=== PATIENT | male | born 1960 | race Caucasian/White ===

== ENCOUNTER 2019-06-18 10:33 | Emergency (ER) | payer OTHER ==
[~2019-06-18] VITALS: Ht 185.4 cm; Wt 65.3 kg
--- NOTE | 2019-06-18 11:07 | NUR ---
ED Nurse Note: Pt brought in to ED from home by caregiver/brother, pt c/o systemic rash/dryness and itchness for several days. Pt is developmentally delayed. VSS. PT is A&Ox1
[2019-06-18 11:08] VITALS: BP 125/54
[2019-06-18] MEDS ORDERED: DiphenhydrAMINE 50mg/ml Inj IVP ONE (11:30)
[2019-06-18] MEDS ORDERED: Solu-MEDROL 125mg Inj IVP ONE (11:30)
[2019-06-18] MEDS ORDERED: BENADRYL25 M3 PO (12:03)
[2019-06-18] MEDS ORDERED: PREDNISONE20 MG ORAL (12:03)
[2019-06-18 12:05] LABS: BASOPHILS % (AUTO) 1.3 % (0.0-2.0); EOSINOPHILS % (AUTO) 9.2 % (0.0-3.0); HEMATOCRIT 33.8 % (42.0-52.0); HEMOGLOBIN 11.1 G/DL (14.2-18.0); LYMPHOCYTES % (AUTO) 11.2 % (20.0-45.0); MEAN CORPUSCULAR VOLUME 78 FL (80-99); MONOCYTES % (AUTO) 4.9 % (1.0-10.0); NEUTROPHILS % (AUTO) 73.4 % (45.0-75.0); PLATELET COUNT 386 K/UL (150-450); RED BLOOD COUNT 4.31 M/UL (4.70-6.10); RED CELL DISTRIBUTION WIDTH 12.2 % (11.6-14.8)
[2019-06-18 12:12] LABS: ANION GAP 2 mmol/L (5-15); BLOOD UREA NITROGEN 6 mg/dL (7-18); CALCIUM 7.7 MG/DL (8.5-10.1); CARBON DIOXIDE 30 MMOL/L (21-32); CHLORIDE 99 MMOL/L (98-107); CREATININE 0.9 MG/DL (0.55-1.30); POTASSIUM 4.4 MMOL/L (3.5-5.1); SODIUM 131 MMOL/L (136-145)
[2019-06-18 12:17] LABS: ALANINE AMINOTRANSFERASE 45 U/L (12-78); ALBUMIN 2.7 G/DL (3.4-5.0); ALBUMIN/GLOBULIN RATIO 0.8 (1.0-2.7); ALKALINE PHOSPHATASE 79 U/L (46-116); ASPARTATE AMINO TRANSFERASE 65 U/L (15-37); BILIRUBIN,TOTAL 0.2 MG/DL (0.2-1.0)
--- NOTE | 2019-06-18 12:31 | NUR ---
EMRD at bedside discussing with pt and family members about D/C plan. EMRD given pt labs to family member.
[2019-06-18 12:40] VITALS: BP 125/54
--- NOTE | 2019-06-18 12:40 | NUR ---
ER DISCHARGE NOTE: Patient is cleared to be discharged per ERMD, pt is aox1, on room air, with stable vital signs. pt's family member was given dc and prescription instructions and was able to verbalize understanding, pt id band and iv site removed without complications. pt is able to ambulate with steady gait. family member took all belongings.
--- NOTE | 2019-06-19 20:14 | Emergency Room Report ---
History of Present Illness General Chief Complaint: Skin Rash/Abscess Source: Family Member, Medical Record Present Illness HPI Patient is a 58-year-old male presents after increased skin rash. This is been present for several weeks. Has had intermittent worsening. Patient had prior history of some mental debilitation. He is not actively on any medications. He has been taking Benadryl with some improvement in the itching however continued to have some itching. He had not been having any fever. No recent change in foods. No increased difficulty with breathing. Allergies: Coded Allergies: No Known Allergies (Unverified , 06/18/19) Patient History Past Medical History: see triage record Reviewed Nursing Documentation: PMH: Agreed; PSxH: Agreed Nursing Documentation-PMH History Of Psychiatric Problem: Yes - Intellectual disability Review of Systems All Other Systems: limited - Review of systems: Review systems is limited by patient's being a poor historian Physical Exam Vital Signs Date Time Temp Pulse Resp B/P (MAP) Pulse Ox O2 Delivery O2 Flow Rate FiO2 06/18/19 10:57 97.5 85 18 125/54 (77) 98 Room Air Sp02 EP Interpretation: reviewed, normal General Appearance: alert, other - [id number], Chronically Ill Head: atraumatic ENT: normal ENT inspection, hearing grossly normal, normal voice Neck: normal inspection, full range of motion, supple, no bony tend Respiratory: normal inspection, lungs clear, normal breath sounds, no respiratory distress, no retraction, no wheezing Cardiovascular #1: regular rate, rhythm, no edema Gastrointestinal: normal inspection, normal bowel sounds, non tender, soft, no guarding, no hernia Genitourinary: no CVA tenderness Musculoskeletal: normal inspection, back normal, normal range of motion Neurologic: normal inspection, alert, responsive, speech normal Psychiatric: normal inspection, judgement/insight normal, mood/affect normal Skin: other - generalized excoriated skin rash without erythema or ulcerations. Medical Decision Making Diagnostic Impression: Primary Impression: Skin rash Additional Impression: Hyponatremia ER Course Patient present for skin rash. Differential diagnosis include was not limited to eczema, contact dermatitis, allergic reaction among others. Laboratory testing was ordered to patient's generalized rash. Patient's laboratory testing showed normal white blood count with no definite evidence of infection. His eosinophil count noted to be somewhat high. Patient sodium was noted to be somewhat low. Patient's family member was advised to have the patient limit the amount of water intake. He was given prescription for steroids as well as antihistamines. Patient is to recheck with primary care physician in the next few days. He is to return if worse. Labs Test 06/18/19 11:30 White Blood Count 7.0 K/UL (4.8-10.8) Red Blood Count 4.31 M/UL (4.70-6.10) Hemoglobin 11.1 G/DL (14.2-18.0) Hematocrit 33.8 % (42.0-52.0) Mean Corpuscular Volume 78 FL (80-99) Mean Corpuscular Hemoglobin 25.8 PG (27.0-31.0) Mean Corpuscular Hemoglobin Concent 32.9 G/DL (32.0-36.0) Red Cell Distribution Width 12.2 % (11.6-14.8) Platelet Count 386 K/UL (150-450) Mean Platelet Volume 5.4 FL (6.5-10.1) Neutrophils (%) (Auto) 73.4 % (45.0-75.0) Lymphocytes (%) (Auto) 11.2 % (20.0-45.0) Monocytes (%) (Auto) 4.9 % (1.0-10.0) Eosinophils (%) (Auto) 9.2 % (0.0-3.0) Basophils (%) (Auto) 1.3 % (0.0-2.0) Sodium Level 131 MMOL/L (136-145) Potassium Level 4.4 MMOL/L (3.5-5.1) Chloride Level 99 MMOL/L (98-107) Carbon Dioxide Level 30 MMOL/L (21-32) Anion Gap 2 mmol/L (5-15) Blood Urea Nitrogen 6 mg/dL (7-18) Creatinine 0.9 MG/DL (0.55-1.30) Estimat Glomerular Filtration Rate > 60 mL/min (>60) Glucose Level 70 MG/DL (74-106) Calcium Level 7.7 MG/DL (8.5-10.1) Total Bilirubin 0.2 MG/DL (0.2-1.0) Aspartate Amino Transf (AST/SGOT) 65 U/L (15-37) Alanine Aminotransferase (ALT/SGPT) 45 U/L (12-78) Alkaline Phosphatase 79 U/L (46-116) Total Protein 6.1 G/DL (6.4-8.2) Albumin 2.7 G/DL (3.4-5.0) Globulin 3.4 g/dL Albumin/Globulin Ratio 0.8 (1.0-2.7) Last Vital Signs Date Time Temp Pulse Resp B/P (MAP) Pulse Ox O2 Delivery O2 Flow Rate FiO2 06/18/19 12:40 97.5 85 18 125/54 98 Room Air Status: improved Disposition: HOME, SELF-CARE Condition: Stable Scripts Diphenhydramine HCl (Benadryl) 25 Mg Capsule 25 MG PO EVERY 6 HOURS, #30 CAP Prov: Igor Hoang MD 06/18/19 Prednisone* (PREDNISONE*) 20 Mg Tablet 40 MG ORAL DAILY, #10 TAB Prov: Igor Hoang MD 06/18/19 Referrals: NON PHYSICIAN (PCP) Patient Instructions: Pruritus Additional Instructions: Follow up with your doctor for recheck and further workup of rash and lymph nodes. Return if any problems. Igor Hoang MD Jun 19, 2019 20:14
== END 2019-06-18 13:30 | disposition home or self-care (01) ==
LOC: EMR 13:22
DX: R21 Rash and other nonspecific skin eruption (principal); E87.1 Hypo-osmolality and hyponatremia
CPT/HCPCS: 36415; 80053; 85025; 96374; 96375; 99284; J1200; J2930

== ENCOUNTER 2019-08-13 15:46 | Emergency (ER) | payer OTHER ==
[~2019-08-13] VITALS: Ht 182.9 cm; Wt 63.5 kg
[~2019-08-13 15:46] MED LIST: BENADRYL25 M3 PO; PREDNISONE20 MG ORAL
[2019-08-13] MEDS ORDERED: BENADRYL25 M3 PO (17:06)
[2019-08-13] MEDS ORDERED: PREDNISONE20 MG ORAL (17:06)
--- NOTE | 2019-08-13 17:06 | Emergency Room Report ---
History of Present Illness General Chief Complaint: Skin Rash/Abscess Source: Family Member Present Illness HPI 59-year-old male with history of chronic pain, here complaining of worsening eczema, pruritus, however denies anaphylaxis, chest pain, shortness of breath, palpitation. Has been taking omtw-ooc-smhvvsb Benadryl. Patient reports that he had a similar condition few months ago and was given prednisone prednisone helped him. Has not yet been seen by primary care provider in this regard. Allergies: Coded Allergies: No Known Allergies (Unverified , 06/18/19) Patient History Past Medical History: see triage record Past Surgical History: unable to obtain Pertinent Family History: none Immunizations: UTD Reviewed Nursing Documentation: PMH: Agreed; PSxH: Agreed Nursing Documentation-PMH Past Medical History: No Stated History Review of Systems All Other Systems: negative except mentioned in HPI Physical Exam Vital Signs Date Time Temp Pulse Resp B/P (MAP) Pulse Ox O2 Delivery O2 Flow Rate FiO2 08/13/19 16:37 97.0 71 19 93/49 (64) 96 Room Air Sp02 EP Interpretation: reviewed, normal General Appearance: no apparent distress, alert, GCS 15, non-toxic Head: normocephalic, atraumatic Eyes: bilateral eye normal inspection, bilateral eye PERRL ENT: hearing grossly normal, normal pharynx, no angioedema, normal voice Neck: full range of motion, supple, no meningismus, supple/symm/no masses Respiratory: chest non-tender, lungs clear, normal breath sounds, no wheezing, speaking full sentences Cardiovascular #1: regular rate, rhythm, no edema, no murmur Gastrointestinal: non tender, soft Rectal: deferred Genitourinary: no CVA tenderness Musculoskeletal: back normal Neurologic: alert, motor strength/tone normal, oriented x3, sensory intact, responsive, speech normal Psychiatric: judgement/insight normal Skin: rash - Chronic eczema noted all over body Lymphatic: no adenopathy Medical Decision Making PA Attestation All diagnoses and treatment plans were reviewed and discussed with my supervising physician Dr. Betts Diagnostic Impression: Primary Impression: Chronic eczema Additional Impression: Contact dermatitis ER Course 59-year-old male with history of chronic pain, here complaining of worsening eczema, pruritus, however denies anaphylaxis, chest pain, shortness of breath, palpitation. Has been taking lobp-bhf-bnqmkuo Benadryl. Patient reports that he had a similar condition few months ago and was given prednisone prednisone helped him. Has not yet been seen by primary care provider in this regard. Ddx considered but are not limited to: Eczema, scabies, lice, Vital signs: are WNL, pt. is afebrile H&PE are most consistent with: Chronic eczema, contact dermatitis ORDERS: Prednisone, Benadryl ED INTERVENTIONS: None required at this time. DISCHARGE: At this time pt. is stable for d/c to home. Will provide printed patient care instructions, and any necessary prescriptions. Care plan and follow up instructions have been discussed with the patient prior to discharge. Patient take medication as directed, follow-up with a shipping and receiving operator and an cook boat. Use iizf-hsm-ybnfhzx Cetaphil cream. If worsening symptoms or anaphylaxis return to the emergency room. Last Vital Signs Date Time Temp Pulse Resp B/P (MAP) Pulse Ox O2 Delivery O2 Flow Rate FiO2 08/13/19 16:37 97.0 71 19 93/49 (64) 96 Room Air Disposition: HOME, SELF-CARE Condition: Stable Scripts Diphenhydramine HCl (Benadryl) 25 Mg Capsule 25 MG PO EVERY 6 HOURS, #30 CAP Prov: Jarod Perez 08/13/19 Prednisone* (PREDNISONE*) 20 Mg Tablet 40 MG ORAL DAILY, #10 TAB Prov: Jarod Perez 08/13/19 Patient Instructions: Contact Dermatitis, Fabc-tc-Rryl, Eczema Additional Instructions: Take medication as directed, follow-up with your primary care provider, need to be sent to an cook boat for proper testing and treatment. Also see a shipping and receiving operator. If worsening symptom return to emergency room. I suggest to use aknp-bjm-tmjjefb lotion called Cetaphil, use Dove products for bathing, avoid wearing nylon and wear cotton only clothing. Avoid eating spicy and greasy food. Use hypoallergenic detergents. Jarod Perez Aug 13, 2019 17:06
[2019-08-13 17:35] VITALS: BP 93/49
[2019-08-13 17:36] VITALS: BP 93/49
--- NOTE | 2019-08-13 17:37 | NUR ---
discharged home with instruction and rx follow up with pmd
== END 2019-08-13 17:34 | disposition home or self-care (01) ==
LOC: EMR 17:02
DX: L30.9 Dermatitis, unspecified (principal)
CPT/HCPCS: 99282

== ENCOUNTER 2019-09-10 01:40 | Inpatient (IN) | payer OTHER ==
[~2019-09-10] VITALS: Ht 175.3 cm; Wt 45.4 kg
[2019-09-10 01:45] VITALS: BP 122/84
--- NOTE | 2019-09-10 01:45 | NUR ---
ED Nurse Note: Pt brought into ED from home by DONELL [id number] for c/o seziure onset LUMBER CUTTER. Per DONELL, family witnessed seizure and it lasted about 1-2 min. Pt has hx of seizures but does not take medications at home. Pt is awake and alert, but is nonverbal to questions at this time. Pt placed in gown and connected to library monitor. IV line established. Seizure precautions in place, will continue to monitor.
--- NOTE | 2019-09-10 01:45 | NUR ---
ED Nurse Note: Diffuse redness, scaly rash noted to body with more redness to L and R hip and sacral region.
--- NOTE | 2019-09-10 01:50 | NUR ---
ED Nurse Note: ERMD notified of pt blood sugar at 59. Pt given (2apple juice as ordered by ERMD, pt tolerated well.
[2019-09-10 01:53] LABS: BASOPHILS % (AUTO) 1.6 % (0.0-2.0); EOSINOPHILS % (AUTO) 3.3 % (0.0-3.0); HEMATOCRIT 34.5 % (42.0-52.0); HEMOGLOBIN 11.7 G/DL (14.2-18.0); LYMPHOCYTES % (AUTO) 10.7 % (20.0-45.0); MEAN CORPUSCULAR VOLUME 77 FL (80-99); MONOCYTES % (AUTO) 4.8 % (1.0-10.0); NEUTROPHILS % (AUTO) 79.7 % (45.0-75.0); PLATELET COUNT 306 K/UL (150-450); RED BLOOD COUNT 4.45 M/UL (4.70-6.10); RED CELL DISTRIBUTION WIDTH 14.1 % (11.6-14.8); WHITE BLOOD COUNT 5.3 K/UL (4.8-10.8)
--- NOTE | 2019-09-10 01:55 | NUR ---
ED Nurse Note: Pt brother is at bedside at this time. Pt brother states pt is "on the slow side" but goes through phases where he is nonverbal and only responds with mumbling and other instances will speak in full sentences. Pt is only mumbling at this time.
--- NOTE | 2019-09-10 02:00 | NUR ---
ED Nurse Note: Pt unable to urinate using urinal at bedside at this time. No urine specimen collected, ERMD aware and ok with no collecting urine.
--- NOTE | 2019-09-10 02:00 | NUR ---
ED Nurse Note: Pt brother states pt does not have hx of seizures, despite report given from [facility].
[2019-09-10 02:05] LABS: ANION GAP 7 mmol/L (5-15); BLOOD UREA NITROGEN 14 mg/dL (7-18); CALCIUM 8.6 MG/DL (8.5-10.1); CARBON DIOXIDE 28 MMOL/L (21-32); CHLORIDE 94 MMOL/L (98-107); CREATININE 0.8 MG/DL (0.55-1.30); POTASSIUM 4.4 MMOL/L (3.5-5.1); SODIUM 129 MMOL/L (136-145)
[2019-09-10 02:11] LABS: ALANINE AMINOTRANSFERASE 49 U/L (12-78); ALBUMIN 2.8 G/DL (3.4-5.0); ALBUMIN/GLOBULIN RATIO 0.8 (1.0-2.7); ALKALINE PHOSPHATASE 87 U/L (46-116); ASPARTATE AMINO TRANSFERASE 68 U/L (15-37); BILIRUBIN,TOTAL 0.2 MG/DL (0.2-1.0)
--- NOTE | 2019-09-10 03:51 | Emergency Room Report ---
History of Present Illness General Chief Complaint: Seizure Source: Patient, Family Member - Brother, EMS Present Illness HPI 59-year-old male history of developmental delay lives at home, presents with new onset seizure, witnessed by family, patient had a tonic-clonic movement, lasting a few minutes no known aggravating relieving factors severity is moderate, constant unsure if patient actually fainted versus actually had a seizure, patient presents via EMS. Patient states he feels completely fine is up to baseline, patient denies any chest pain shortness of breath nausea vomiting, abdominal pain no headache, unknown if there was a postictal episode Allergies: Coded Allergies: No Known Allergies (Unverified , 06/18/19) Patient History Past Medical History: see triage record Reviewed Nursing Documentation: PMH: Agreed; PSxH: Agreed Nursing Documentation-PMH Hx Seizures: Yes Review of Systems All Other Systems: negative except mentioned in HPI Physical Exam Vital Signs Date Time Temp Pulse Resp B/P (MAP) Pulse Ox O2 Delivery O2 Flow Rate FiO2 09/10/19 01:30 97.5 86 16 122/84 (97) 98 Room Air Sp02 EP Interpretation: reviewed, normal General Appearance: well appearing, no apparent distress, alert Head: normocephalic, atraumatic Eyes: bilateral eye PERRL, bilateral eye EOMI ENT: uvula midline, moist mucus membranes Neck: supple, thyroid normal, supple/symm/no masses Respiratory: lungs clear, no respiratory distress, no retraction, no accessory muscle use Cardiovascular #1: normal peripheral pulses, regular rate, rhythm, no edema, no gallop, no murmur Gastrointestinal: non tender, soft, no guarding, no rebound Musculoskeletal: normal inspection Neurologic: alert, oriented x3 Psychiatric: mood/affect normal Skin: no rash, warm/dry Medical Decision Making Diagnostic Impression: Primary Impression: Epileptic seizure, generalized Additional Impression: Hypoglycemia ER Course 59-year-old male presents with new onset seizures, of note unknown origin differential diagnosis includes hyperglycemia, new onset seizures, brain mass We will admit patient for new onset seizures, CT scan negative for acute pathology Patient found to be recurrently hypoglycemic will start lactated Ringer's, will give dextrose will also give octreotide additionally patient will be admitted to telemetry Patient admitted to Dr. bojorquez Laboratory Tests Test 09/10/19 01:44 White Blood Count 5.3 K/UL (4.8-10.8) Red Blood Count 4.45 M/UL (4.70-6.10) L Hemoglobin 11.7 G/DL (14.2-18.0) L Hematocrit 34.5 % (42.0-52.0) L Mean Corpuscular Volume 77 FL (80-99) L Mean Corpuscular Hemoglobin 26.2 PG (27.0-31.0) L Mean Corpuscular Hemoglobin Concent 33.8 G/DL (32.0-36.0) Red Cell Distribution Width 14.1 % (11.6-14.8) Platelet Count 306 K/UL (150-450) Mean Platelet Volume 6.7 FL (6.5-10.1) Neutrophils (%) (Auto) 79.7 % (45.0-75.0) H Lymphocytes (%) (Auto) 10.7 % (20.0-45.0) L Monocytes (%) (Auto) 4.8 % (1.0-10.0) Eosinophils (%) (Auto) 3.3 % (0.0-3.0) H Basophils (%) (Auto) 1.6 % (0.0-2.0) Sodium Level 129 MMOL/L (136-145) L Potassium Level 4.4 MMOL/L (3.5-5.1) Chloride Level 94 MMOL/L (98-107) L Carbon Dioxide Level 28 MMOL/L (21-32) Anion Gap 7 mmol/L (5-15) Blood Urea Nitrogen 14 mg/dL (7-18) Creatinine 0.8 MG/DL (0.55-1.30) Estimate Glomerular Filtration Rate mL/min (>60) Glucose Level 63 MG/DL (74-106) L Calcium Level 8.6 MG/DL (8.5-10.1) Total Bilirubin 0.2 MG/DL (0.2-1.0) Aspartate Amino Transferase (AST) 68 U/L (15-37) H Alanine Aminotransferase (ALT) 49 U/L (12-78) Alkaline Phosphatase 87 U/L (46-116) Troponin I 0.000 ng/mL (0.000-0.056) Total Protein 6.3 G/DL (6.4-8.2) L Albumin 2.8 G/DL (3.4-5.0) L Globulin 3.5 g/dL Albumin/Globulin Ratio 0.8 (1.0-2.7) L Acetaminophen Level < 2 MCG/ML (10-30) L Valproic Acid Level < 3 MCG/ML (50-100) L Carbamazepine (Tegretol) Level < 0.5 ug/mL (4.0-12.0) L Phenobarbital Level < 1.0 ug/mL (15-40) L Serum Alcohol < 3 mg/dL EKG Diagnostic Results EKG Time: 01:59 EP Interpretation: NSR, rate 71, QTc 452, no acute ST elevations, normal axis Rhythm Strip Diag. Results Rhythm Strip Time: 03:53 EP Interpretation: yes Rate: 68 Rhythm: NSR, no PVC's, no ectopy CT/MRI/US Diagnostic Results CT/MRI/US Diagnostic Results : Impression Preliminary Findings Only See Final Report For Complete Findings CT HEAD: No ICH, mass effect or edema. No evidence of acute cortical stroke. Visualized sinuses and mastoid air cells are clear. Radiologist: Keith Blanchard MD Study ready at 06:01 and initial results transmitted at 06:14 Results also transmitted to Yelitza smith , Yelitza smith @ [phone] (Fax) Last Vital Signs Date Time Temp Pulse Resp B/P (MAP) Pulse Ox O2 Delivery O2 Flow Rate FiO2 09/10/19 01:45 86 16 Room Air 09/10/19 01:45 97.5 122/84 98 Disposition: ADMITTED INPATIENT Condition: Stable Referrals: NON PHYSICIAN (PCP) Tiburcio Aguilar MD Sep 10, 2019 03:51
[2019-09-10] MEDS ORDERED: SandoSTATIN 50mcg Inj IVP ONE (04:00)
[2019-09-10] MEDS ORDERED: Dextrose 5%/Lactated Ringer's 1,000 ML IV SCH (04:00)
--- NOTE | 2019-09-10 04:10 | NUR ---
ED Nurse Note: Sandostatin medication ordered by CARIE is not in ER pyxis. Charge nurse aware and phone call to radha made. Radha stated that medication is in the night locker and to follow up with nursing slab lifting supervisor.
--- NOTE | 2019-09-10 04:30 | NUR ---
ED Nurse Note: Went to night nurse supervisor files and checked night locker for medication Sandostatin, which isn't available. Nurse supervisor files instructed RN to wait until pharmacy is here in the morning. ERMD aware and is okay with waiting until pharmacy arrives.
[2019-09-10 06:00] VITALS: BP 125/72
--- NOTE | 2019-09-10 06:00 | NUR ---
ED Nurse Note: Pt resting in bed, no acute distress noted. VSS. Will continue to monitor. IV dextrose/LR infusing as ordered.
--- NOTE | 2019-09-10 06:35 | NUR ---
ED Nurse Note: Pt blood sugar 306, BARTOLOMED Lauren aware and Dextrose/LR drip still infusing at this time.
--- NOTE | 2019-09-10 07:10 | NUR ---
HAND-OFF: Report given to CHAS Osorio and endorsed plan of care.
[2019-09-10] MEDS ORDERED: levETIRAcetam 1,000mg/NS100ml 100 ML IVPB ONE (08:15)
[2019-09-10] MEDS ORDERED: SandoSTATIN 100mcg Inj IVP ONE (08:15)
[2019-09-10 08:26] VITALS: BP 123/76
--- NOTE | 2019-09-10 08:48 | Diagnostic Imaging Report ---
EXAM: CT Head Without Intravenous Contrast CLINICAL HISTORY: SZ TECHNIQUE: Axial computed tomography images of the head/brain without intravenous contrast. CTDI is 62.7 mGy and DLP is 1426.4 mGy-cm. One or more of the following dose reduction techniques were used: automated exposure control, adjustment of the mA and/or kV according to patient size, use of iterative reconstruction technique. COMPARISON: No relevant prior studies available. FINDINGS: Brain: Unremarkable. No hemorrhage. No significant white matter disease. No edema. Ventricles: Unremarkable. No ventriculomegaly. Bones/joints: Unremarkable. No acute fracture. Soft tissues: Unremarkable. Sinuses: Unremarkable as visualized. No acute sinusitis. Mastoid air cells: Unremarkable as visualized. No mastoid effusion. IMPRESSION: Normal head/brain CT.
[2019-09-10 10:17] LABS: BASOPHILS % (AUTO) 0.6 % (0.0-2.0); EOSINOPHILS % (AUTO) 4.5 % (0.0-3.0); HEMATOCRIT 34.4 % (42.0-52.0); HEMOGLOBIN 11.8 G/DL (14.2-18.0); LYMPHOCYTES % (AUTO) 10.6 % (20.0-45.0); MEAN CORPUSCULAR VOLUME 77 FL (80-99); MONOCYTES % (AUTO) 3.1 % (1.0-10.0); NEUTROPHILS % (AUTO) 81.2 % (45.0-75.0); PLATELET COUNT 294 K/UL (150-450); RED BLOOD COUNT 4.47 M/UL (4.70-6.10); RED CELL DISTRIBUTION WIDTH 14.5 % (11.6-14.8)
[2019-09-10 10:29] LABS: ANION GAP 5 mmol/L (5-15); BLOOD UREA NITROGEN 10 mg/dL (7-18); CALCIUM 7.9 MG/DL (8.5-10.1); CARBON DIOXIDE 28 MMOL/L (21-32); CHLORIDE 97 MMOL/L (98-107); CREATININE 0.7 MG/DL (0.55-1.30); POTASSIUM 4.6 MMOL/L (3.5-5.1); SODIUM 130 MMOL/L (136-145)
[2019-09-10 10:46] LABS: ALANINE AMINOTRANSFERASE 44 U/L (12-78); ALBUMIN 2.6 G/DL (3.4-5.0); ALBUMIN/GLOBULIN RATIO 0.8 (1.0-2.7); ALKALINE PHOSPHATASE 90 U/L (46-116); ASPARTATE AMINO TRANSFERASE 63 U/L (15-37); BILIRUBIN,TOTAL 0.2 MG/DL (0.2-1.0); FERRITIN 68 NG/ML (8-388)
[2019-09-10 11:03] LABS: % IRON SATURATION 28 % (15-50); IRON 65 ug/dL (50-175); TOTAL IRON BINDING CAPACITY 234 ug/dL (250-450)
--- NOTE | 2019-09-10 12:13 | Consultation ---
Consult Note Consult Note asked to eval for low Na 59-year-old male history of developmental delay lives at home, presents with new onset seizure, witnessed by family, patient had a tonic-clonic movement, lasting a few minutes no known aggravating relieving factors severity is moderate, constant unsure if patient actually fainted versus actually had a seizure, patient presents via EMS. Patient states he feels completely fine is up to baseline, patient denies any chest pain shortness of breath nausea vomiting, abdominal pain no headache, unknown if there was a postictal episode No Known Allergies (Unverified , 06/18/19) Hx Seizures: Yes non historian examined discussed with Tiago DOHERTYsmall engine trainer/Plan Low Na , Low Uric acid likekly mild SIADH Sz Developementa delay Mild Anemia Fluid restriction Mag IV Keppra Yohannes Smith MD Sep 10, 2019 12:13
[2019-09-10] MEDS ORDERED: Docusate 100mg cap ORAL SCH (13:00)
[2019-09-10] MEDS ORDERED: Cortrosyn 0.25mg Inj IVP ONE (13:00)
--- NOTE | 2019-09-10 13:17 | NUR ---
NURSE NOTES: Notified Dr. Marky Baird patients TSH=7.632.
--- NOTE | 2019-09-10 13:39 | Consultation ---
Consult Note Consult Note NEUROLOGY CONSULTATION: HISTORY: Mr. Rolando Zaidi is a 59-year-old, left-handed, black gentleman, who has a past history of developmental delay. He was brought into the [facility] emergency room for a possible seizure. The exact details of the events are unknown to us. Is also unclear if this is his first seizure or not. However in the emergency room notes it is noted that he had a generalized tonic-clonic seizure. At this point in time he feels that he is back to his normal self. He is unable to give any history regarding what happened that brought him to the hospital. He tells me that he is weak all over and has not been able to walk for quite some time. He also tells me that he is never been to school. PAST HISTORY: Developmental delay Eczema FAMILY HISTORY: Unavailable PERSONAL HISTORY: HOME: He lives with his family. WORK: He has never worked. HABITS: He denies use of alcohol tobacco or illicit drugs. PHYSICAL EXAMINATION: He is a well-developed, relatively well-nourished, black gentleman, lying in bed, with his legs hyperflexed, with an odd physiognomy. VITAL SIGNS: Pulse: 79/min Blood pressure: 121/75 mmHg Respirations: 16/min Temperature: 98.0 F HEAD: Normocephalic and atraumatic. NECK: No neck rigidity was observed. EENT examination: Benign NEUROLOGICAL EXAMINATION: MENTAL STATUS EXAMINATION: He was awake and alert. He was oriented to self only. He had no idea of where he was or what the date was. He was able to recall 3/3 words immediately, but could not remember them after 1 and 3 minutes. He was unable to tell me who the president president was and who prior presidents were. His mathematical skills were impaired even for single-digit calculations. His visuospatial function was also impaired. SPEECH: He had a moderate dysarthria. LANGUAGE: He had problems with comprehension, repetition, naming, and expression of language. CRANIAL NERVES: II through XII: Intact. MOTOR EXAMINATION: The tone was increased in all 4 extremities with spasticity. Examination of muscle mass revealed generalized muscle wasting. Examination of power was impossible to perform because he was unable to cooperate he however moves all 4 extremities on command. SENSORY EXAMINATION: He was able to respond appropriately to pinprick and light touch. He was unable to cooperate for the sensory modalities. COORDINATION: Mpgokf-[id number] and uypg-we-zoiq testing were attempted but he was severely apractic. REFLEXES: 1+ and bilaterally symmetrical at the biceps, triceps, brachioradialis, and knees. 0 at both ankles. The plantar responses were flexor. STANCE & GAIT: Unable to test as patient said that he cannot stand and walk. DIAGNOSTIC IMPRESSION: 1. Mr. Rolando Zaidi is a 59-year-old, left-handed, black gentleman, who has a past history of developmental delay. He was brought into the hospital for new onset generalized tonic-clonic seizure. 2. On neurological examination, at this time, he exhibits severe cognitive dysfunction, spasticity in all 4 extremities, generalized weakness, globally diminished deep tendon reflexes, and inability to stand and walk. 3. A CT scan of the brain without contrast performed on 09/10/2019 was normal. 4. Laboratory data obtained thus far have revealed a hemoglobin low at 11.7, a low sodium at 129, a low glucose at 63, and elevated TSH at 7.63 with a normal free T4 at 1.04. 5. It is unclear at this point in time as to whether the patient's seizure was related to hypoglycemia and hyponatremia versus a seizure due to other reasons. RECOMMENDATIONS: 1. Agree with management thus far. 2. The patient should be worked up thoroughly for other treatable causes of seizures with an ESR, RPR, hemoglobin A1c. 3. An EEG will be ordered to evaluate the patient for the type of seizure disorder. 4. An MRI scan of the brain without and with gadolinium should be performed to evaluate the patient for new onset seizures. 5. Continue Keppra 500 mg every 12 hours. 6. The patient will be observed closely and depending on how he fares further recommendations will be given. Thank you for entrusting me with the care of Mr. Zaidi. I shall follow him with you. Dashawn Tavera M.D., M.S.P.H. Neurologist & Clinical Neurophysiologist Dashawn Tavera MD Sep 10, 2019 13:39
[2019-09-10] MEDS ORDERED: Gadavist 7.5mMol/7.5ml vial IV PRN (13:45)
[2019-09-10] MEDS: Hydrocortisone 2.5% Oint 30gm TOPIC PRN (14:17)
--- NOTE | 2019-09-10 17:24 | NUR ---
NURSE NOTES: Both ACTH and Cortisol Timed tests were performed at 1509 (second set) by Kate in the laboratory.
[2019-09-10] MEDS: Docusate 100mg cap ORAL SCH (18:11)
--- NOTE | 2019-09-10 19:40 | NUR ---
NURSE NOTES: Received report from Jose Ramon Thakkar, pt. in bed awake, appears to be alert to name, no signs or symptoms of acute cardiac or respiratory distress noted, bed alarm on, side rails up x's3 and safety brakes engaged, bed in lowest position, side rails padded for seizure precautions- no seizure activity noted, pt.appears to be sating well on room air- no distress noted, pt.is NPO per endorsement, left hand 20G IV intact and patent, safety measures continued, will continue with plan of care.
--- NOTE | 2019-09-10 19:47 | NUR ---
NURSE NOTES: Patient sitting up in bed, awake and alert to name, socks placed on hands due to itching, treated with hydrocortisone cream, bed in lowest position, call light within reach, on room air, in no apparent distress, close to nurses station.
--- NOTE | 2019-09-10 19:48 | NUR ---
HAND-OFF: Report given to Delio Rodriguez RN. Patient sitting up in bed, awake and alert to name, socks placed on hands due to itching, treated with hydrocortisone cream, bed in lowest position, call light within reach, on room air, in no apparent distress, close to nurses station. IV patent in left hand.
--- NOTE | 2019-09-10 19:56 | NUR ---
NURSE NOTES: Left message on Dr. Xenia Sheets emergency number with concern for medication in case of seizure, possibly Ativan, and also mentioned having a venous duplex prior to application of SCD's. continuity reader nurse is Lulu, and notified Dr. Xenia Sheets to ask for Delio.
[2019-09-10 20:00] VITALS: BP 139/72
--- NOTE | 2019-09-10 20:02 | NUR ---
NURSE NOTES: Left message with Dr. Herbert Snell (sp?) covering for Dr. Dashawn Tavera requesting medication in case patient has a seizure, perhaps Ativan. Informed to ask for evening nurseLulu.
--- NOTE | 2019-09-10 20:43 | NUR ---
NURSE NOTES: DR. Wilson calling back, no Ativan PRN order needed for seizure-No seizure activity noted. Also venous duplex is okay to order before placing SCDs on pt.- orders carried out.
--- NOTE | 2019-09-10 22:22 | NUR ---
NURSE NOTES: Per loida Decker calling from lab regarding cortisol level range 3.7-19.4 cortisol 10am is 10.1 for 1330 cortisol level is 10.1 and 1500 cortisol level is 21.8- will notify MD DR. Wilson.
--- NOTE | 2019-09-10 22:30 | NUR ---
NURSE NOTES: per DR. Wilson to notify DR. Baird- will call doctor.
--- NOTE | 2019-09-10 22:35 | NUR ---
NURSE NOTES: Detailed message left For Dr. Baird regarding cortisol level - awaiting for call back from doctor.
[2019-09-11] VITALS: BP 123/79
--- NOTE | 2019-09-11 02:15 | History and Physical Report ---
DATE OF ADMISSION: 08/13/2019 HISTORY OF PRESENT ILLNESS: The patient was admitted for possible new onset of seizures. The patient has a mental delay, is a poor historian, status post fall, cannot get any reliable history from the patient. The patient had a syncopal episode, oriented to name only. The patient states no to everything and he is a very poor historian. He has some mental delays, he is admitted for new onset of seizures. The patient apparently also has been getting hypoglycemia. The patient diabetic and the patient's sodium was also low, was admitted for those reasons. Oriented to name only. PAST MEDICAL HISTORY: Mental delay. We are not sure if the patient has a history of seizure at this point. PAST SURGICAL HISTORY: Denies. ALLERGIES: Denies. MEDICATIONS: Denies. We need to get more records from the patient to see what the patient takes . SOCIAL HISTORY: Denies history of smoking, alcohol, or illegal drugs, however, is a poor historian. PHYSICAL EXAMINATION: VITAL SIGNS: Temperature is 98, pulse is 79, blood pressure is 121/75. HEENT: PERRLA. NECK: Supple. CHEST: Clear to auscultation. CARDIOVASCULAR: Regular rate and rhythm. No murmurs or extra sounds. GASTROINTESTINAL: Soft, nontender. No organomegaly. EXTREMITIES: No edema, moves all four extremities. Sensory intact to light touch. Reflexes on both sides. NEUROLOGIC: Oriented to name only. LABORATORY DATA: WBC of 5.3, hemoglobin 11.7, and 6.7. ASSESSMENT AND PLAN: 1. Altered mental status. 2. New-onset seizure. 3. Electrolyte imbalance. Actually, oriented to name only. I have consulted Dr. King, Dr. Baird, Dr. Tavera for seizure control as well as for hypoglycemia control and management and also for hyponatremia. The hyponatremia could also contribute to the seizures. Xenia Sheets M.D. DR: TAMICA JOB#: [id number] CC: ARIANA
--- NOTE | 2019-09-11 02:45 | NUR ---
NURSE NOTES: During rounds noted patients IV out at bedside- will reinsert new IV. Pt. remains stable.
[2019-09-11 04:00] VITALS: BP 125/70
--- NOTE | 2019-09-11 06:30 | NUR ---
NURSE NOTES: During rounds noted patients IV out at bedside that was wrapped- will reinsert new IV. Pt. remains stable.
--- NOTE | 2019-09-11 06:56 | General Progress Note ---
Assessment/Plan Problem List: (1) Hypoglycemia ICD Codes: E16.2 - Hypoglycemia, unspecified SNOMED: 210342534 (2) Epileptic seizure, generalized ICD Codes: G40.309 - Generalized idiopathic epilepsy and epileptic syndromes, not intractable, without status epilepticus SNOMED: 34637106 (3) Hyponatremia ICD Codes: E87.1 - Hypo-osmolality and hyponatremia SNOMED: 82556486 Assessment/Plan: adrenal insufficiency is ruled out - he passed Cortrosyn stimulation test on 09/10 TSH elevated and free T4 is normal - this represents "subclinical hypothyroidism " vs "sick euthyroid" I will repeat TSH before starting thyroxine Subjective ROS Limited/Unobtainable: Yes Allergies: Coded Allergies: No Known Allergies (Unverified , 06/18/19) Subjective events noted Objective Last 24 Hour Vital Signs Date Time Temp Pulse Resp B/P (MAP) Pulse Ox O2 Delivery O2 Flow Rate FiO2 09/11/19 04:00 97.7 58 20 125/70 (88) 100 09/11/19 03:42 60 09/11/19 00:00 64 09/11/19 00:00 97.5 58 18 123/79 (94) 99 09/10/19 21:00 Room Air 09/10/19 20:00 97.7 71 18 139/72 (94) 99 09/10/19 20:00 78 09/10/19 18:37 57 09/10/19 16:00 46 09/10/19 12:00 61 09/10/19 11:27 Room Air 09/10/19 08:36 66 09/10/19 08:35 98.0 79 12 121/75 97 Room Air 09/10/19 08:26 98.0 75 12 123/76 99 Room Air Intake and Output 09/10/19 09/11/19 19:00 07:00 Intake Total 400 ml Balance 400 ml IV Total 400 ml # Voids 2 4 Laboratory Tests 09/10/19 10:00: White Blood Count 5.0, Red Blood Count 4.47L, Hemoglobin 11.8L, Hematocrit 34.4L , Mean Corpuscular Volume 77L, Mean Corpuscular Hemoglobin 26.5L, Mean Corpuscular Hemoglobin Concent 34.4, Red Cell Distribution Width 14.5, Platelet Count 294, Mean Platelet Volume 6.5, Neutrophils (%) (Auto) 81.2H, Lymphocytes ( %) (Auto) 10.6L, Monocytes (%) (Auto) 3.1, Eosinophils (%) (Auto) 4.5H, Basophils (%) (Auto) 0.6, Erythrocyte Sedimentation Rate 22H, Sodium Level 130L , Potassium Level 4.6, Chloride Level 97L, Carbon Dioxide Level 28, Anion Gap 5 , Blood Urea Nitrogen 10, Creatinine 0.7, Estimat Glomerular Filtration Rate > 60, Glucose Level 128H, Hemoglobin A1c 5.6, Osmolality 273L, Uric Acid 2.9, Calcium Level 7.9L, Phosphorus Level 3.0, Magnesium Level 1.5L, Iron Level 65, Total Iron Binding Capacity 234L, Percent Iron Saturation 28, Unsaturated Iron Binding 169, Ferritin 68, Total Bilirubin 0.2, Aspartate Amino Transf (AST/SGOT ) 63H, Alanine Aminotransferase (ALT/SGPT) 44, Alkaline Phosphatase 90, C- Reactive Protein, Quantitative 1.0H, Pro-B-Type Natriuretic Peptide 121, Total Protein 5.9L, Albumin 2.6L, Globulin 3.3, Albumin/Globulin Ratio 0.8L, Vitamin B12 Level 1752H, Folate 13.2, Thyroid Stimulating Hormone (TSH) 7.632H, Free Thyroxine 1.04, Cortisol 10.1, Adrenocorticotropic Hormone [Pending], Rapid Plasma Reagin [Pending] 09/10/19 13:30: Cortisol 10.1 09/10/19 15:05: Cortisol 21.8, Adrenocorticotropic Hormone [Pending] Height (Feet): 5 Height (Inches): 9.00 Weight (Pounds): 150 General Appearance: no apparent distress Neck: normal inspection Cardiovascular: normal rate Respiratory/Chest: lungs clear Abdomen: normal bowel sounds Pelvis: normal external exam Objective Current Medications Medications (Trade) Dose Ordered Sig/Edwin Route PRN Reason Start Time Stop Time Status Last Admin Dose Admin Acetaminophen (Tylenol) 650 mg Q4H PRN ORAL Mild Pain/Temp > 100.5 09/10/19 10:00 10/10/19 09:59 Dextrose (Dextrose 50%) 25 ml Q30M PRN IV Hypoglycemia 09/10/19 10:00 10/10/19 09:59 Dextrose (Dextrose 50%) 50 ml Q30M PRN IV Hypoglycemia 09/10/19 10:00 10/10/19 09:59 Docusate Sodium (Colace) 100 mg TWICE A DAY ORAL 09/10/19 18:00 10/10/19 17:59 09/10/19 18:11 Gadobutrol (Gadavist) 7.5 mmol NOW PRN IV Radiology Procedure 09/10/19 13:45 09/14/19 13:39 Hydrocortisone (Hydrocortisone) 1 applic Q4H PRN TOPIC Itching 09/10/19 13:15 10/10/19 13:14 09/10/19 14:17 Levetiracetam (Keppra) 500 mg Q12HR ORAL 09/10/19 21:00 10/10/19 20:59 09/10/19 20:09 Pantoprazole (Protonix) 40 mg BID ORAL 09/10/19 18:00 10/10/19 10:14 09/10/19 18:11 Marky Baird MD Sep 11, 2019 06:56
--- NOTE | 2019-09-11 07:25 | NUR ---
HAND-OFF: Report given to Joselyn Rn, pt. remains stable and no distress noted.
[2019-09-11 07:30] LABS: HEMATOCRIT 35.3 % (42.0-52.0); HEMOGLOBIN 12.7 G/DL (14.2-18.0); MEAN CORPUSCULAR VOLUME 77 FL (80-99); PLATELET COUNT 290 K/UL (150-450); RED CELL DISTRIBUTION WIDTH 14.6 % (11.6-14.8); WHITE BLOOD COUNT 2.6 K/UL (4.8-10.8)
[2019-09-11 07:47] LABS: ALANINE AMINOTRANSFERASE 49 U/L (12-78); ALBUMIN/GLOBULIN RATIO 0.8 (1.0-2.7); ALKALINE PHOSPHATASE 104 U/L (46-116); ANION GAP 9 mmol/L (5-15); ASPARTATE AMINO TRANSFERASE 67 U/L (15-37); BILIRUBIN,TOTAL 0.2 MG/DL (0.2-1.0); BLOOD UREA NITROGEN 9 mg/dL (7-18); CALCIUM 8.2 MG/DL (8.5-10.1); CARBON DIOXIDE 26 MMOL/L (21-32); CHLORIDE 100 MMOL/L (98-107); CREATININE 0.8 MG/DL (0.55-1.30); PHOSPHORUS 3.8 MG/DL (2.5-4.9); POTASSIUM 4.7 MMOL/L (3.5-5.1); SODIUM 135 MMOL/L (136-145)
[2019-09-11 08:00] VITALS: BP 105/57
--- NOTE | 2019-09-11 08:49 | NUR ---
NURSE NOTES: Received patient from Jose Ramon Lawson. Patient is awake, confused. Lying comfortably in bed. No complain pf pain or discomfort at this time. Fall/seizure precautions in place. call delatorre within reach. will follow.
[2019-09-11] MEDS: Docusate 100mg cap ORAL SCH ×2 (09:18→17:35)
--- NOTE | 2019-09-11 10:12 | Cardiac Electrophysiology PN ---
Subjective Subjective [id number] Objective Last 24 Hour Vital Signs Date Time Temp Pulse Resp B/P (MAP) Pulse Ox O2 Delivery O2 Flow Rate FiO2 09/11/19 04:00 97.7 58 20 125/70 (88) 100 09/11/19 03:42 60 09/11/19 00:00 64 09/11/19 00:00 97.5 58 18 123/79 (94) 99 09/10/19 21:00 Room Air 09/10/19 20:00 97.7 71 18 139/72 (94) 99 09/10/19 20:00 78 09/10/19 18:37 57 09/10/19 16:00 46 09/10/19 12:00 61 09/10/19 11:27 Room Air Intake and Output 09/10/19 09/11/19 19:00 07:00 Intake Total 400 ml Balance 400 ml IV Total 400 ml # Voids 2 4 Laboratory Tests Test 09/10/19 13:30 09/10/19 15:05 09/11/19 06:45 Cortisol 10.1 UG/DL 21.8 UG/DL Adrenocorticotropic Hormone Pending White Blood Count 2.6 K/UL (4.8-10.8) L Red Blood Count 4.60 M/UL (4.70-6.10) L Hemoglobin 12.7 G/DL (14.2-18.0) L Hematocrit 35.3 % (42.0-52.0) L Mean Corpuscular Volume 77 FL (80-99) L Mean Corpuscular Hemoglobin 27.6 PG (27.0-31.0) Mean Corpuscular Hemoglobin Concent 36.0 G/DL (32.0-36.0) Red Cell Distribution Width 14.6 % (11.6-14.8) Platelet Count 290 K/UL (150-450) Mean Platelet Volume 6.3 FL (6.5-10.1) L Neutrophils (%) (Auto) % (45.0-75.0) Lymphocytes (%) (Auto) % (20.0-45.0) Monocytes (%) (Auto) % (1.0-10.0) Eosinophils (%) (Auto) % (0.0-3.0) Basophils (%) (Auto) % (0.0-2.0) Differential Total Cells Counted 100 Neutrophils % (Manual) 80 % (45-75) H Lymphocytes % (Manual) 15 % (20-45) L Monocytes % (Manual) 5 % (1-10) Eosinophils % (Manual) 0 % (0-3) Basophils % (Manual) 0 % (0-2) Band Neutrophils 0 % (0-8) Platelet Estimate Adequate Platelet Morphology Normal Microcytosis 1+ Sodium Level 135 MMOL/L (136-145) L Potassium Level 4.7 MMOL/L (3.5-5.1) Chloride Level 100 MMOL/L (98-107) Carbon Dioxide Level 26 MMOL/L (21-32) Anion Gap 9 mmol/L (5-15) Blood Urea Nitrogen 9 mg/dL (7-18) Creatinine 0.8 MG/DL (0.55-1.30) Estimat Glomerular Filtration Rate > 60 mL/min (>60) Glucose Level 84 MG/DL (74-106) Uric Acid 2.8 MG/DL (2.6-7.2) Calcium Level 8.2 MG/DL (8.5-10.1) L Phosphorus Level 3.8 MG/DL (2.5-4.9) Magnesium Level 2.5 MG/DL (1.8-2.4) H Total Bilirubin 0.2 MG/DL (0.2-1.0) Aspartate Amino Transf (AST/SGOT) 67 U/L (15-37) H Alanine Aminotransferase (ALT/SGPT) 49 U/L (12-78) Alkaline Phosphatase 104 U/L (46-116) Total Protein 6.8 G/DL (6.4-8.2) Albumin 3.0 G/DL (3.4-5.0) L Globulin 3.8 g/dL Albumin/Globulin Ratio 0.8 (1.0-2.7) L Thyroid Stimulating Hormone (TSH) 5.918 uiU/mL (0.358-3.740) Sreekanth Dong MD Sep 11, 2019 10:12
--- NOTE | 2019-09-11 10:37 | Nephrology Progress Note ---
Assessment/Plan Problem List: (1) Hyponatremia (2) Epileptic seizure, generalized (3) Electrolyte imbalance (4) Hypothyroid Assessment: Euthyroid Assessment Low Na , Low Uric acid likekly mild SIADH Sz Developmental delay Mild Anemia Plan Fluid restriction Mag IV Keppra St eval Subjective ROS Limited/Unobtainable: No Constitutional: Reports: malaise, weakness Objective Objective Last 24 Hour Vital Signs Date Time Temp Pulse Resp B/P (MAP) Pulse Ox O2 Delivery O2 Flow Rate FiO2 09/11/19 04:00 97.7 58 20 125/70 (88) 100 09/11/19 03:42 60 09/11/19 00:00 64 09/11/19 00:00 97.5 58 18 123/79 (94) 99 09/10/19 21:00 Room Air 09/10/19 20:00 97.7 71 18 139/72 (94) 99 09/10/19 20:00 78 09/10/19 18:37 57 09/10/19 16:00 46 09/10/19 12:00 61 09/10/19 11:27 Room Air Intake and Output 09/10/19 09/11/19 19:00 07:00 Intake Total 400 ml Balance 400 ml IV Total 400 ml # Voids 2 4 Laboratory Tests 09/10/19 13:30: Cortisol 10.1 09/10/19 15:05: Cortisol 21.8, Adrenocorticotropic Hormone [Pending] 09/11/19 06:45: White Blood Count 2.6L, Red Blood Count 4.60L, Hemoglobin 12.7L, Hematocrit 35.3L, Mean Corpuscular Volume 77L, Mean Corpuscular Hemoglobin 27.6, Mean Corpuscular Hemoglobin Concent 36.0, Red Cell Distribution Width 14.6, Platelet Count 290, Mean Platelet Volume 6.3L, Neutrophils (%) (Auto) , Lymphocytes (%) ( Auto) , Monocytes (%) (Auto) , Eosinophils (%) (Auto) , Basophils (%) (Auto) , Differential Total Cells Counted 100, Neutrophils % (Manual) 80H, Lymphocytes % (Manual) 15L, Monocytes % (Manual) 5, Eosinophils % (Manual) 0, Basophils % ( Manual) 0, Band Neutrophils 0, Platelet Estimate Adequate, Platelet Morphology Normal, Microcytosis 1+, Sodium Level 135L, Potassium Level 4.7, Chloride Level 100, Carbon Dioxide Level 26, Anion Gap 9, Blood Urea Nitrogen 9, Creatinine 0.8 , Estimat Glomerular Filtration Rate > 60, Glucose Level 84, Uric Acid 2.8, Calcium Level 8.2L, Phosphorus Level 3.8, Magnesium Level 2.5H, Total Bilirubin 0.2, Aspartate Amino Transf (AST/SGOT) 67H, Alanine Aminotransferase (ALT/SGPT) 49, Alkaline Phosphatase 104, Total Protein 6.8, Albumin 3.0L, Globulin 3.8, Albumin/Globulin Ratio 0.8L, Thyroid Stimulating Hormone (TSH) [Pending], Free Thyroxine [Pending] Height (Feet): 5 Height (Inches): 9.00 Weight (Pounds): 150 General Appearance: no apparent distress Abdomen: soft Objective no change Yohannes King MD Sep 11, 2019 10:37
--- NOTE | 2019-09-11 11:06 | NUR ---
ST NOTES: REFERRED FOR SWALLOW EVALUATION BY DR MILLARD (PRIMARY IS DR GANNON). DYSPHAGIA RISK FACTORS FOR THIS 59 Y.O.LEFT-HAND DOMINANT AA MALE: ACUTE ISSUES: JOB HAND HAD NEW ONSET TONIC-CLONIC SEIZURE A FEW MINS MODERATE SEVERITY (SEE NEURO CONSULT DR Trisha KELLY REPORT), (CT HEAD IN ER NEGATIVE), LATER BACK TO BASELINE (WHICH PER HIS BROTHER IS " A LITTLE ON THE SLOW SIDE" AND WILL GO FROM MUMBLING LIKE NOW TO FULL SENTENCES, HYPOGLYCEMIA, LUNGS CLEAR PER MD. MRI BRAIN AND EEG ORDERED BY NEUROLOGIST DR KELLY. 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 HE TOLD HIM THAT HE NEVER WENT TO SCHOOL. SEVERE COGNITIVE DYSFUNCTION, SPASTICITY ALL 4 EXTREMITIES, GEN WEAKNESS. RECALLED 3/3 WORDS IMMEDIATELY BUT ONLY 1/3 AFTER 1 AND 3 MINUTES. DID NOT KNOW PRESIDENT NOR MATH SINGLE-DIGIT CALCULATIONS, IMPAIRED VISUOSPATIAL FX, MODERATE DYSARTHRIA, PROBLEMS WITH COMPREHENSION, REPETITION, NAMING, AND VERBAL EXPRESSION. TENDS TO BE ECHOLALIC WITH CREW MESS ATTENDANT AND REPEAT WHAT CREW MESS ATTENDANT OR OTHERS SAY. PERSEVERATES ON THE SAME WORDS. SAID HE WAS NOT HUNGRY NOR THIRSTY. YELLS OUT WHEN FRANCO CATH PUT IN. NO POLST/AD REGARDING TUBE FEEDING PREFERENCES. ? AT HOME DIET/LIQUIDS WILL NEED TO CHECK WITH BROTHER. LOOKS CACHECTIC. HAS POSITIONING PROBLEMS AND IS CONTRACTED. PER RN, WILL CHEW HIS PILLS WHEN GIVEN MEDS. NOW NPO EXCEPT MEDS/ICE-CHIPS. ON ROOM AIR WITH ADEQUATE DENTITION. POOR FOLLOWING ORAL COMMANDS BUT CAN EXPRESS NEEDS AT TIME. INITIAL IMPRESSIONS: S/S OF MILD OROPHARYNGEAL DYSPHAGIA WITH INCREASED ORAL PREP AND OROPHARYNGEAL TRANSIT TIMES (MAY BE BASELINE FROM DEVELOPMENTAL DELAY HX). GIVEN THIN LIQUIDS VIA STRAW SEQUENTIAL SIPS, NO OVERT S/S OF ASPIRATION BUT WILL PAUSE AFTER A FEW SIPS. GIVEN TSP APPLESAUCE, TAKES A FEW SECONDS PRIOR TO SWALLOW, FAIR HYOLARYNGEAL EXCURSION, NO ORAL RESIDUE NOR OVERT ASPIRATION. GIVEN MASTICATED SOLID, CHEWS LONGER 1/2 CRACKER (10-15 SEC) (WITH MOUTH OPEN) AND WILL TALK, SWALLOWS WITH FAIR HYOLARYNGEAL EXCURSION AND HAS MILD ORAL RESIDUE MID TONGUE THAT HE CLEARS WITH A SIP OF WATER, NO OVERT ASPIRATION RECOMMENDATIONS: COMPLETE MOD BARIUM SWALLOW STUDY IF PO GIVEN FOR QUALITY OF LIFE, CONSIDER INITIALLY GIVING PUREED AND THIN LIQUIDS ONE SIP AT A TIME WITH POSTED ASP/REFLUX PRECAUTIONS AND ONE TO ONE FEEDING. CONSIDER HIGH FRANKO SUP AND DIET TYPE PER DIETITIAN SKILLED DYSPHAGIA MANAGEMENT AND TX AND COG-COM EVAL FOR COMMUNICATION TIPS MOSTLY. EDUCATED/TRAINED RN (CHUCK) AND FACING MACHINE OPERATOR (BROWN) IN POSTED PRECAUTIONS .
--- NOTE | 2019-09-11 11:30 | Neurology Progress Note ---
Interim History Interim History Interim History Mr. Rolando Zaidi is a 59-year-old, left-handed, black gentleman, who has a past history of developmental delay. He was brought into the hospital for new onset generalized tonic-clonic seizure. When he was brought into the emergency room he was hypoglycemic, hyponatremic and anemic. Since he has been in the hospital he has had no further seizures. He feels well today and denies any new neurological symptoms. We are still awaiting his MRI of the brain and EEG. Review of Systems Neuro Review of Systems Benign. Objective Physical Exam Last Vital Signs Date Time Temp Pulse Resp B/P (MAP) Pulse Ox O2 Delivery O2 Flow Rate FiO2 09/11/19 04:00 97.7 58 20 125/70 (88) 100 09/10/19 21:00 Room Air Laboratory Tests Test 09/10/19 13:30 09/10/19 15:05 09/11/19 06:45 Cortisol 10.1 UG/DL 21.8 UG/DL Adrenocorticotropic Hormone Pending White Blood Count 2.6 K/UL (4.8-10.8) L Red Blood Count 4.60 M/UL (4.70-6.10) L Hemoglobin 12.7 G/DL (14.2-18.0) L Hematocrit 35.3 % (42.0-52.0) L Mean Corpuscular Volume 77 FL (80-99) L Mean Corpuscular Hemoglobin 27.6 PG (27.0-31.0) Mean Corpuscular Hemoglobin Concent 36.0 G/DL (32.0-36.0) Red Cell Distribution Width 14.6 % (11.6-14.8) Platelet Count 290 K/UL (150-450) Mean Platelet Volume 6.3 FL (6.5-10.1) L Neutrophils (%) (Auto) % (45.0-75.0) Lymphocytes (%) (Auto) % (20.0-45.0) Monocytes (%) (Auto) % (1.0-10.0) Eosinophils (%) (Auto) % (0.0-3.0) Basophils (%) (Auto) % (0.0-2.0) Differential Total Cells Counted 100 Neutrophils % (Manual) 80 % (45-75) H Lymphocytes % (Manual) 15 % (20-45) L Monocytes % (Manual) 5 % (1-10) Eosinophils % (Manual) 0 % (0-3) Basophils % (Manual) 0 % (0-2) Band Neutrophils 0 % (0-8) Platelet Estimate Adequate Platelet Morphology Normal Microcytosis 1+ Sodium Level 135 MMOL/L (136-145) L Potassium Level 4.7 MMOL/L (3.5-5.1) Chloride Level 100 MMOL/L (98-107) Carbon Dioxide Level 26 MMOL/L (21-32) Anion Gap 9 mmol/L (5-15) Blood Urea Nitrogen 9 mg/dL (7-18) Creatinine 0.8 MG/DL (0.55-1.30) Estimat Glomerular Filtration Rate > 60 mL/min (>60) Glucose Level 84 MG/DL (74-106) Uric Acid 2.8 MG/DL (2.6-7.2) Calcium Level 8.2 MG/DL (8.5-10.1) L Phosphorus Level 3.8 MG/DL (2.5-4.9) Magnesium Level 2.5 MG/DL (1.8-2.4) H Total Bilirubin 0.2 MG/DL (0.2-1.0) Aspartate Amino Transf (AST/SGOT) 67 U/L (15-37) H Alanine Aminotransferase (ALT/SGPT) 49 U/L (12-78) Alkaline Phosphatase 104 U/L (46-116) Total Protein 6.8 G/DL (6.4-8.2) Albumin 3.0 G/DL (3.4-5.0) L Globulin 3.8 g/dL Albumin/Globulin Ratio 0.8 (1.0-2.7) L Thyroid Stimulating Hormone (TSH) 6.203 uiU/mL (0.358-3.740) Free Thyroxine 1.10 NG/DL (0.76-1.46) Neurologic Exam Objective PHYSICAL EXAMINATION: GENERAL: He is a well-developed, relatively well-nourished, black gentleman, lying in bed, with an odd physiognomy. HEAD: Normocephalic and atraumatic. NECK: No neck rigidity was observed. EENT examination: Benign NEUROLOGICAL EXAMINATION: MENTAL STATUS EXAMINATION: He was awake and alert. He was oriented to self only. He had no idea of where he was or what the date was. He was able to recall 3/3 words immediately, but could not remember them after 1 and 3 minutes. He was unable to tell me who the president president was and who prior presidents were. His mathematical skills were impaired even for single-digit calculations. His visuospatial function was also impaired. SPEECH: He had a moderate dysarthria. LANGUAGE: He had problems with comprehension, repetition, naming, and expression of language. CRANIAL NERVES: II: The visual wheat were intact on confrontation testing. III, IV, and : Extraocular movements were full. Pupils were 3 mm in diameter equal, round, regular, and reactive to light. V: Facial sensations were normal, and the temporales, masseters, and pterygoids functioned normally. VII: Facial expressions were normal and no facial asymmetry was noted. VIII: Hearing was normal bilaterally and no nystagmus was observed. IX: The palate moved symmetrically on phonation. X: No hoarseness of voice was observed. XI: The sternocleidomastoids and trapezii functioned normally. XII: The tongue was in the midline without any fasciculations or atrophy. MOTOR EXAMINATION: The tone was increased in all 4 extremities with spasticity. Examination of muscle mass revealed generalized muscle wasting. Examination of power was impossible to perform because he was unable to cooperate he however moved all 4 extremities on command. SENSORY EXAMINATION: He was able to localize light touch. He was unable to cooperate for the sensory modalities. COORDINATION: [id number] and [id number]-[id number] testing were attempted but he was severely apractic. REFLEXES: 1+ and bilaterally symmetrical at the biceps, triceps, brachioradialis, and knees. 0 at both ankles. The plantar responses were flexor. STANCE & GAIT: Unable to test as patient said that he cannot stand and walk. Impression/Recommendations Diagnostic Impression DIAGNOSTIC IMPRESSION: 1. Mr. Rolando Zaidi is a 59-year-old, left-handed, black gentleman, who has a past history of developmental delay. He was brought into the hospital for new onset generalized tonic-clonic seizure. 2. When he was brought into the emergency room he was hypoglycemic, hyponatremic and anemic. 3. Since he has been in the hospital he has had no further seizures. He feels well today and denies any new neurological symptoms. We are still awaiting his MRI of the brain and EEG. 4. On neurological examination, at this time, he exhibits severe cognitive dysfunction, spasticity in all 4 extremities, generalized weakness, globally diminished deep tendon reflexes, and inability to stand and walk. 5. A CT scan of the brain without contrast performed on 09/10/2019 was normal. 6. Laboratory data on my initial evaluation revealed a hemoglobin low at 11.7, a low sodium at 129, a low glucose at 63, an elevated TSH at 7.63 with a normal free T4 at 1.04. 7. It is unclear at this point in time as to whether the patient's seizure was related to hypoglycemia and hyponatremia versus a seizure due to other reasons. 8. However the patient has been seizure free since he was hospitalized. Recommendations RECOMMENDATIONS: 1. Continue present management. 2. Await all laboratory tests that have been ordered 3. Await EEG to evaluate for the type of seizure disorder. 4. Await MRI scan of the brain without and with gadolinium to evaluate the patient for new onset seizures. 5. Continue Keppra 500 mg every 12 hours. 6. Observe closely. Dashawn Tvaera M.D., M.S.P.H. Neurologist & Clinical Neurophysiologist Dashawn Tavera MD Sep 11, 2019 11:30
[2019-09-11 12:00] VITALS: BP 121/61
[2019-09-11] MEDS ORDERED: LORazepam 1mg tab ORAL SCH (13:15)
--- NOTE | 2019-09-11 14:50 | NUR ---
PER DR. KELLY, OK TO CANCEL MRI EXAM BECAUSE PATIENT'S HEAD IS TOO CONTRACTED TO FIT INTO MRI HEAD COIL. ALSO, PT UNABLE TO STAY COMPLETELY STILL TO TAKE IMAGES, EVEN WITH PO SEDATION GIVEN. LEIGH 14:52
--- NOTE | 2019-09-11 14:51 | NUR ---
NURSE NOTES: Dr. King made aware unable to collect urine for study after multiple attempts. patient very combative and agitated towards staff unable to redirect. MD aware that when catheter advance during straight cath there is blockage observe. and keeps removing condom catheter when placed. will follow.
--- NOTE | 2019-09-11 15:10 | NUR ---
NURSE NOTES:WOUND CARE NOTES:Pt presented on admission with multiple skin breakdown. Partial thickness pressure injury L trochanter with surrounding non-blanching erythema(L)4cm x (W)3.5cm. Non-blanching erythema with shearing noted to R and L buttocks. Partial thickness pressure injury noted to R ischium(L)1cm x (W)1cm. No other skin concerns noted. Tx.plan: Apply Moisture Barrier Paste to R and L buttocks. Cover with Optifoam drsg. Change every 3 days and prn. Apply Moisture Barrier Paste to R and L trochanter. Cover each site with Optifoam drsg. Change very 3 days and prn. Apply Cavilon Skin BArrier to heel. Copver with Optifoam drsg. Changee very 7 days and prn. Reposition at least every 2hours or as tolerated.
--- NOTE | 2019-09-11 15:38 | NUR ---
CASE MANAGEMENT:REVIEW 59 YR OLD MALE BIBA FROM HOME CC: SEIZURE WITNESSED BY FAMILY PMH: SEIZURE DISORDER. DELAYED SI: SEIZURE. HYPOGLYCEMIA 97.5 86 16 122/84 98% ON RA NA-129 GLUCOSE-63 IS: 1L NS BOLUS IV D5 LR IV OCTREOTIDE IV D50W CT HEAD : TO TELEMETRY
--- NOTE | 2019-09-11 16:18 | NUR ---
NURSE NOTES: Spoke with Roge Engel Rn at [facility]. Current medications obtained. Discussed with Dr. Lj Gao. Addendum: 09/11/19 at 1620 by Vannesa Alves RN Disregard above documentation wrong patient
--- NOTE | 2019-09-11 16:33 | Diagnostic Imaging Report ---
Indication: Dyspnea Comparison: None A single view chest radiograph was obtained. Findings: Cardiomediastinal appearance is within normal limits for age. The lungs are clear. Pulmonary vascularity is appropriate. The diaphragmatic contour is smooth and costophrenic angles are sharp. No pleural effusions are identified. The bones are unremarkable. Impression: No acute findings
--- NOTE | 2019-09-11 17:00 | NUR ---
NURSE NOTES: Dr. Dr. Franco made aware patient unabale to stay still in MRI per tech Dennis. Call placed to Deon for EE he said he will come tonight. will follow
--- NOTE | 2019-09-11 17:02 | NUR ---
*-* INSURANCE *-* ALL CLINICALS AND REVIEWS HAVE BEEN FAXED TO: MARY RANGEL:ROBBY P: [phone] [place] [phone] REF# [id number]
--- NOTE | 2019-09-11 19:30 | NUR ---
NURSE NOTES: Received patient from Vannesa DOHERTY. Patient in bed, on room air no signs of respiratory distress. Awake, alert, confused. Bed in low position, locked, bed alarm on, call light within reach. Side rails padded for seizure precautions.
--- NOTE | 2019-09-11 19:40 | NUR ---
HAND-OFF: Report given to Jose Ramon Agudelo. Plan of care endorsed.
[2019-09-11 20:00] VITALS: BP 123/44
--- NOTE | 2019-09-11 21:49 | General Progress Note ---
Assessment/Plan Problem List: (1) Hypoglycemia ICD Codes: E16.2 - Hypoglycemia, unspecified SNOMED: 537717511 (2) Hyponatremia ICD Codes: E87.1 - Hypo-osmolality and hyponatremia SNOMED: 25421731 (3) Epileptic seizure, generalized ICD Codes: G40.309 - Generalized idiopathic epilepsy and epileptic syndromes, not intractable, without status epilepticus SNOMED: 95704866 (4) Electrolyte imbalance ICD Codes: E87.8 - Other disorders of electrolyte and fluid balance, not elsewhere classified SNOMED: 186255558 (5) Hypothyroid ICD Codes: E03.9 - Hypothyroidism, unspecified SNOMED: 08934277 Status: progressing Assessment/Plan: afebrile hypoglycemai lyte abnormality seizure reviewed chart and labs Subjective ROS Limited/Unobtainable: Yes Allergies: Coded Allergies: No Known Allergies (Unverified , 06/18/19) Objective Last 24 Hour Vital Signs Date Time Temp Pulse Resp B/P (MAP) Pulse Ox O2 Delivery O2 Flow Rate FiO2 09/11/19 16:00 55 09/11/19 12:00 58 09/11/19 12:00 96.7 56 19 121/61 (81) 100 09/11/19 09:00 Room Air 09/11/19 08:00 98.1 63 18 105/57 (73) 100 09/11/19 08:00 53 09/11/19 04:00 97.7 58 20 125/70 (88) 100 09/11/19 03:42 60 09/11/19 00:00 64 09/11/19 00:00 97.5 58 18 123/79 (94) 99 Intake and Output 09/10/19 09/11/19 19:00 07:00 Intake Total 400 ml Balance 400 ml IV Total 400 ml # Voids 2 4 Laboratory Tests 09/11/19 06:45: White Blood Count 2.6L, Red Blood Count 4.60L, Hemoglobin 12.7L, Hematocrit 35.3L, Mean Corpuscular Volume 77L, Mean Corpuscular Hemoglobin 27.6, Mean Corpuscular Hemoglobin Concent 36.0, Red Cell Distribution Width 14.6, Platelet Count 290, Mean Platelet Volume 6.3L, Neutrophils (%) (Auto) , Lymphocytes (%) ( Auto) , Monocytes (%) (Auto) , Eosinophils (%) (Auto) , Basophils (%) (Auto) , Differential Total Cells Counted 100, Neutrophils % (Manual) 80H, Lymphocytes % (Manual) 15L, Monocytes % (Manual) 5, Eosinophils % (Manual) 0, Basophils % ( Manual) 0, Band Neutrophils 0, Platelet Estimate Adequate, Platelet Morphology Normal, Microcytosis 1+, Sodium Level 135L, Potassium Level 4.7, Chloride Level 100, Carbon Dioxide Level 26, Anion Gap 9, Blood Urea Nitrogen 9, Creatinine 0.8 , Estimat Glomerular Filtration Rate > 60, Glucose Level 84, Uric Acid 2.8, Calcium Level 8.2L, Phosphorus Level 3.8, Magnesium Level 2.5H, Total Bilirubin 0.2, Aspartate Amino Transf (AST/SGOT) 67H, Alanine Aminotransferase (ALT/SGPT) 49, Alkaline Phosphatase 104, Total Protein 6.8, Albumin 3.0L, Globulin 3.8, Albumin/Globulin Ratio 0.8L, Thyroid Stimulating Hormone (TSH) 6.203H, Free Thyroxine 1.10 Height (Feet): 5 Height (Inches): 9.00 Weight (Pounds): 150 General Appearance: confused Neck: supple Cardiovascular: normal rate Respiratory/Chest: lungs clear Abdomen: soft Xenia Sheets MD Sep 11, 2019 21:49
--- NOTE | 2019-09-11 23:00 | NUR ---
NURSE NOTES: Patient felt cool to the touch. Attempted to obtain temperature, machine would not register. Patient was still responsive, LOC at baseline, alert, awake. Gave a full bed bath with warm water. Covered with warm blankets.
[2019-09-12] VITALS: BP 134/69
--- NOTE | 2019-09-12 01:30 | NUR ---
NURSE NOTES: Placed warming blanket on patient.
--- NOTE | 2019-09-12 03:00 | NUR ---
NURSE NOTES: Temp: 96.1 Axillary.
[2019-09-12 04:00] VITALS: BP 103/53
--- NOTE | 2019-09-12 06:10 | General Progress Note ---
Assessment/Plan Problem List: (1) Hypoglycemia ICD Codes: E16.2 - Hypoglycemia, unspecified SNOMED: 551931376 (2) Epileptic seizure, generalized ICD Codes: G40.309 - Generalized idiopathic epilepsy and epileptic syndromes, not intractable, without status epilepticus SNOMED: 57619353 (3) Hyponatremia ICD Codes: E87.1 - Hypo-osmolality and hyponatremia SNOMED: 14275078 Status: progressing Assessment/Plan: adrenal insufficiency is ruled out - he passed Cortrosyn stimulation test on 09/10 TSH repeated and improved and free T4 is normal - this is most likely due to sick euthyroid - no need to start thyroxine - repeat thyroid function in 3 weeks Subjective ROS Limited/Unobtainable: Yes Allergies: Coded Allergies: No Known Allergies (Unverified , 06/18/19) Subjective events noted - interval notes reviewed Objective Last 24 Hour Vital Signs Date Time Temp Pulse Resp B/P (MAP) Pulse Ox O2 Delivery O2 Flow Rate FiO2 09/12/19 04:01 49 09/12/19 04:00 96.1 47 16 103/53 (70) 99 09/12/19 03:00 96.1 09/12/19 00:00 91.0 58 16 134/69 (90) 100 09/12/19 00:00 50 09/11/19 21:00 Room Air 09/11/19 20:00 50 16 123/44 (70) 99 09/11/19 20:00 53 09/11/19 16:00 55 09/11/19 12:00 58 09/11/19 12:00 96.7 56 19 121/61 (81) 100 09/11/19 09:00 Room Air 09/11/19 08:00 98.1 63 18 105/57 (73) 100 09/11/19 08:00 53 Intake and Output 09/11/19 09/12/19 19:00 07:00 Intake Total 280 ml Balance 280 ml Intake Oral 280 ml Laboratory Tests 09/11/19 06:45: White Blood Count 2.6L, Red Blood Count 4.60L, Hemoglobin 12.7L, Hematocrit 35.3L, Mean Corpuscular Volume 77L, Mean Corpuscular Hemoglobin 27.6, Mean Corpuscular Hemoglobin Concent 36.0, Red Cell Distribution Width 14.6, Platelet Count 290, Mean Platelet Volume 6.3L, Neutrophils (%) (Auto) , Lymphocytes (%) ( Auto) , Monocytes (%) (Auto) , Eosinophils (%) (Auto) , Basophils (%) (Auto) , Differential Total Cells Counted 100, Neutrophils % (Manual) 80H, Lymphocytes % (Manual) 15L, Monocytes % (Manual) 5, Eosinophils % (Manual) 0, Basophils % ( Manual) 0, Band Neutrophils 0, Platelet Estimate Adequate, Platelet Morphology Normal, Microcytosis 1+, Sodium Level 135L, Potassium Level 4.7, Chloride Level 100, Carbon Dioxide Level 26, Anion Gap 9, Blood Urea Nitrogen 9, Creatinine 0.8 , Estimat Glomerular Filtration Rate > 60, Glucose Level 84, Uric Acid 2.8, Calcium Level 8.2L, Phosphorus Level 3.8, Magnesium Level 2.5H, Total Bilirubin 0.2, Aspartate Amino Transf (AST/SGOT) 67H, Alanine Aminotransferase (ALT/SGPT) 49, Alkaline Phosphatase 104, Total Protein 6.8, Albumin 3.0L, Globulin 3.8, Albumin/Globulin Ratio 0.8L, Thyroid Stimulating Hormone (TSH) 6.203H, Free Thyroxine 1.10 Height (Feet): 5 Height (Inches): 9.00 Weight (Pounds): 150 General Appearance: no apparent distress Neck: normal alignment Cardiovascular: normal rate Respiratory/Chest: lungs clear Abdomen: normal bowel sounds Pelvis: normal external exam Objective Current Medications Medications (Trade) Dose Ordered Sig/Edwin Route PRN Reason Start Time Stop Time Status Last Admin Dose Admin Acetaminophen (Tylenol) 650 mg Q4H PRN ORAL Mild Pain/Temp > 100.5 09/10/19 10:00 10/10/19 09:59 Dextrose (Dextrose 50%) 25 ml Q30M PRN IV Hypoglycemia 09/10/19 10:00 10/10/19 09:59 Dextrose (Dextrose 50%) 50 ml Q30M PRN IV Hypoglycemia 09/10/19 10:00 10/10/19 09:59 Docusate Sodium (Colace) 100 mg TWICE A DAY ORAL 09/10/19 18:00 10/10/19 17:59 09/11/19 17:35 Gadobutrol (Gadavist) 7.5 mmol NOW PRN IV Radiology Procedure 09/10/19 13:45 09/14/19 13:39 Hydrocortisone (Hydrocortisone) 1 applic Q4H PRN TOPIC Itching 09/10/19 13:15 10/10/19 13:14 09/10/19 14:17 Levetiracetam (Keppra) 500 mg Q12HR ORAL 09/10/19 21:00 10/10/19 20:59 09/11/19 20:54 Pantoprazole (Protonix) 40 mg BID ORAL 09/10/19 18:00 10/10/19 10:14 09/11/19 17:35 Marky Baird MD Sep 12, 2019 06:10
--- NOTE | 2019-09-12 06:30 | NUR ---
NURSE NOTES: Temp 97.[address] Lee at bedside to see patient. Notified him that patient was hypothermic throughout the shift. Notified Dr. Sheets as well.
--- NOTE | 2019-09-12 06:53 | Consultation ---
History of Present Illness General Chief Complaint: Seizure Present Illness Allergies: Coded Allergies: No Known Allergies (Unverified , 06/18/19) Medication History Scheduled Diphenhydramine HCl (Benadryl), 25 MG PO EVERY 6 HOURS Discontinued Medications Prednisone* (Prednisone*), 40 MG ORAL DAILY Discontinued Reason: Therapy completed Patient History Healthcare decision maker Resuscitation status Full Code Advanced Directive on File No Physical Exam Last 24 Hour Vital Signs Date Time Temp Pulse Resp B/P (MAP) Pulse Ox O2 Delivery O2 Flow Rate FiO2 09/12/19 04:01 49 09/12/19 04:00 96.1 47 16 103/53 (70) 99 09/12/19 03:00 96.1 09/12/19 00:00 91.0 58 16 134/69 (90) 100 09/12/19 00:00 50 09/11/19 21:00 Room Air 09/11/19 20:00 50 16 123/44 (70) 99 09/11/19 20:00 53 09/11/19 16:00 55 09/11/19 12:00 58 09/11/19 12:00 96.7 56 19 121/61 (81) 100 09/11/19 09:00 Room Air 09/11/19 08:00 98.1 63 18 105/57 (73) 100 09/11/19 08:00 53 Intake and Output 09/11/19 09/12/19 19:00 07:00 Intake Total 280 ml Balance 280 ml Intake Oral 280 ml # Voids 3 Height (Feet): 5 Height (Inches): 9.00 Weight (Pounds): 150 Medications Current Medications Medications (Trade) Dose Ordered Sig/Edwin Route PRN Reason Start Time Stop Time Status Last Admin Dose Admin Acetaminophen (Tylenol) 650 mg Q4H PRN ORAL Mild Pain/Temp > 100.5 09/10/19 10:00 10/10/19 09:59 Dextrose (Dextrose 50%) 25 ml Q30M PRN IV Hypoglycemia 09/10/19 10:00 10/10/19 09:59 Dextrose (Dextrose 50%) 50 ml Q30M PRN IV Hypoglycemia 09/10/19 10:00 10/10/19 09:59 Docusate Sodium (Colace) 100 mg TWICE A DAY ORAL 09/10/19 18:00 10/10/19 17:59 09/11/19 17:35 Gadobutrol (Gadavist) 7.5 mmol NOW PRN IV Radiology Procedure 09/10/19 13:45 09/14/19 13:39 Hydrocortisone (Hydrocortisone) 1 applic Q4H PRN TOPIC Itching 09/10/19 13:15 10/10/19 13:14 09/10/19 14:17 Levetiracetam (Keppra) 500 mg Q12HR ORAL 09/10/19 21:00 10/10/19 20:59 09/11/19 20:54 Pantoprazole (Protonix) 40 mg BID ORAL 09/10/19 18:00 10/10/19 10:14 09/11/19 17:35 Assessment/Plan Assessment/Plan: Heme consult REQ MD: Xenia Birmingham RFC: LEUKOPENIA eval DOS: 09/12/2019 ID 59-year-old male history of developmental delay lives at home, presents with new onset seizure, witnessed by family, patient had a tonic-clonic movement, lasting a few minutes no known aggravating relieving factors severity is moderate, constant unsure if patient actually fainted versus actually had a seizure, patient presents via EMS. Patient states he feels completely fine is up to baseline, patient denies any chest pain shortness of breath nausea vomiting, abdominal pain no headache, unknown if there was a postictal episode vasyl Agudelo the Rn, patient currently is hypothermic, without siezure, seen by endo , to be consulted with ID potentially, blood culture, urine and cxr are pending , also now with a new leukopenia, heme consulted. He is minimally responsive, nods to question, a+o x1 Allergies: No Known Allergies (Unverified , 06/18/19) Patient History Past Medical History: see triage record Reviewed Nursing Documentation: PMH: Agreed; PSxH: Agreed Nursing Documentation-PMH Hx Seizures: Yes Review of Systems All Other Systems: negative except mentioned in HPI Difficult to obtai Social hx: no ADORE Physical Exam Gen: Nad, hypotermic, T 96f Pulm: Ctab CV: rrr, no mgr Abd: soft, nd, nt Ext: no cce Imaging: noted Labs: reviewed Assessment and Recs: # Leukopenia may be related to SIRs v sepsis is new onset --> obtain urine, blood cultures, cxr as needed --> abx as needed, consider Id eval --> smear to be reviewed --> consider neupogen to goal ANC>1500 --> HEP and HIV orderd --> US of the abd ordered as wel --> endo consulted, considers as sick euthyroid # Epileptic seizure, generalized --> as per neuro recs --> eeg as needed # Hypoglycemia --> endo eval # Hyponatremia --> as per Dr. Fernando sanderson Appreciate consultation and Jaskaran Sepulveda RN, MD Sep 12, 2019 06:53
--- NOTE | 2019-09-12 07:43 | NUR ---
NURSE NOTES: Received patient from Jose Ramon Agudelo. Patient is sleeping comfortably in bed. Dylon hugger in place. current temp 96.6 axillary. Will hold tray for US ABD this am as per Dr. Lee's order. Will monitor patient all throughout this shift,
[2019-09-12 08:00] VITALS: BP 138/65
--- NOTE | 2019-09-12 08:35 | Cardiac Electrophysiology PN ---
Assessment/Plan Assessment/Plan 1. Bradycardia.Off SNYDER or VN isabela. Could be due to Keppra. HR not critically low. Echo still pending. May be hypothyroid 2. Developmental delay 3. Seizure. FU Dr Tavera 4. Leukopenia, FU Dr Siddiqi 5. High TSH. Could be hypothyroid TSH elevated and free T4 is normal - this represents "subclinical hypothyroidism" vs "sick euthyroid" per Dr Oli DEAN RN Subjective Subjective Developmental delay. Was hypothermic. No arrhythmias. HR 40-50s. Lowest HR 35 sleeping Objective Last 24 Hour Vital Signs Date Time Temp Pulse Resp B/P (MAP) Pulse Ox O2 Delivery O2 Flow Rate FiO2 09/12/19 08:00 97.0 56 18 138/65 (89) 98 56 09/12/19 06:00 97.0 09/12/19 04:01 49 09/12/19 04:00 96.1 47 16 103/53 (70) 99 09/12/19 03:00 96.1 09/12/19 00:00 91.0 58 16 134/69 (90) 100 09/12/19 00:00 50 09/11/19 21:00 Room Air 09/11/19 20:00 50 16 123/44 (70) 99 09/11/19 20:00 53 09/11/19 16:00 55 09/11/19 12:00 58 09/11/19 12:00 96.7 56 19 121/61 (81) 100 09/11/19 09:00 Room Air Intake and Output 09/11/19 09/12/19 18:59 06:59 Intake Total 280 ml Balance 280 ml Intake Oral 280 ml # Voids 3 Objective Gen: Nad, hypotermic, T 96f Pulm: CTA CV: rrr, no mgr Abd: soft, nd, nt Ext: no cce Sreekanth Dong MD Sep 12, 2019 08:35
[2019-09-12] MEDS: Docusate 100mg cap ORAL SCH ×2 (09:14→17:29)
--- NOTE | 2019-09-12 11:32 | Diagnostic Imaging Report ---
Indication: Dyspnea Comparison: 09/11/2019 A single view chest radiograph was obtained. Findings: Cardiomediastinal appearance is within normal limits for age. The lungs are clear. Pulmonary vascularity is appropriate. The diaphragmatic contour is smooth and costophrenic angles are sharp. No pleural effusions are identified. The bones are osteopenic. Impression: No acute findings
[2019-09-12 12:00] VITALS: BP 130/65
--- NOTE | 2019-09-12 12:00 | NUR ---
NURSE NOTES: Dylon villalba removed from Patient rectal temp 97.7, will follow.
--- NOTE | 2019-09-12 12:17 | Diagnostic Imaging Report ---
Indication: Abdominal pain Technique: Grayscale and duplex Doppler imaging of the abdomen performed. Comparison: None Findings: The liver is unremarkable except for a tiny cyst measuring less than 1 cm. Doppler interrogation of the main portal vein shows patency with hepatopedal, monophasic flow. There is no biliary ductal dilatation identified. Gallbladder is unremarkable. There demonstrated part of the pancreas, aorta and IVC show no definite abnormalities. Both kidneys appear unremarkable. Tiny right renal cyst noted. There is no hydronephrosis. IMPRESSION: No sonographic evidence for chronic liver disease identified. No acute findings appreciated. Tiny liver cysts Tiny right renal cyst
[2019-09-12 12:24] LABS: APPEARANCE,URINE CLOUDY; BILIRUBIN, URINE NEGATIVE (NEGATIVE); GLUCOSE, URINE (UA) NEGATIVE (NEGATIVE); KETONES,URINE NEGATIVE (NEGATIVE); LEUKOCYTE ESTERASE ,URINE 2+ (NEGATIVE); NITRITE,URINE POSITIVE (NEGATIVE); PH,URINE 7 (4.5-8.0); PROTEIN,URINE NEGATIVE (NEGATIVE); UROBILINOGEN,URINE NORMAL MG/DL (0.0-1.0)
[2019-09-12 12:31] LABS: COLOR,URINE YELLOW
--- NOTE | 2019-09-12 12:39 | NUR ---
RADIOLOGY DEPT., CHEST X-RAY COMPLETED.-P.DYE
--- NOTE | 2019-09-12 14:33 | Nephrology Progress Note ---
Assessment/Plan Problem List: (1) Hyponatremia (2) Epileptic seizure, generalized (3) Electrolyte imbalance (4) Hypothyroid Assessment: Euthyroid Assessment Low Na , Low Uric acid likekly mild SIADH Sz Developmental delay Mild Anemia Plan Fluid restriction Mag IV Keppra St eval Subjective ROS Limited/Unobtainable: No Constitutional: Reports: malaise Objective Objective Last 24 Hour Vital Signs Date Time Temp Pulse Resp B/P (MAP) Pulse Ox O2 Delivery O2 Flow Rate FiO2 09/12/19 12:00 97.7 60 18 130/65 (86) 99 60 09/12/19 12:00 60 09/12/19 09:00 Room Air 09/12/19 08:00 97.0 56 18 138/65 (89) 98 56 09/12/19 08:00 81 09/12/19 06:00 97.0 09/12/19 04:01 49 09/12/19 04:00 96.1 47 16 103/53 (70) 99 09/12/19 03:00 96.1 09/12/19 00:00 91.0 58 16 134/69 (90) 100 09/12/19 00:00 50 09/11/19 21:00 Room Air 09/11/19 20:00 50 16 123/44 (70) 99 09/11/19 20:00 53 09/11/19 16:00 55 Intake and Output 09/11/19 09/12/19 19:00 07:00 Intake Total 280 ml Balance 280 ml Intake Oral 280 ml # Voids 3 Laboratory Tests 09/12/19 08:30: Lactic Acid Level 1.30, Hepatitis A IgM Antibody [Pending], Hepatitis B Surface Antigen [Pending], Hepatitis B Core IgM Antibody [Pending], Hepatitis C Antibody [Pending], HIV (1&2) Antibody Rapid Negative 09/12/19 11:58: Urine Color Yellow, Urine Appearance Cloudy, Urine pH 7, Urine Specific Ackley 1.010, Urine Protein Negative, Urine Glucose (UA) Negative, Urine Ketones Negative, Urine Blood 1+H, Urine Nitrite PositiveH, Urine Bilirubin Negative, Urine Urobilinogen Normal, Urine Leukocyte Esterase 2+H, Urine RBC 0-2H, Urine WBC 10-15H, Urine Squamous Epithelial Cells Occasional, Urine Bacteria ManyH, Urine Osmolality 421L Height (Feet): 5 Height (Inches): 9.00 Weight (Pounds): 150 General Appearance: no apparent distress Objective no change Yohannes King MD Sep 12, 2019 14:33
--- NOTE | 2019-09-12 15:19 | NUR ---
CASE MANAGEMENT:REVIEW 09/12/19 SI: GENERALIZED SEIZURE. HYPONATREMIA (LIKELY SIADH) 97.0 56 18 138/65 98% ON RA IS: KEPPRA PO Q12 PROTONIX PO BID COLACE PO BID : TELEMETRY STATUS PLAN: RESTRICT FLUID REPLACE MAGNESIUM SWALLOW EVAL EEG RESULTS PENDING
[2019-09-12 16:00] VITALS: BP 105/51
--- NOTE | 2019-09-12 19:22 | NUR ---
NURSE NOTES: RECEIVED PATIENT RESTING IN BED, AWAKE. FALL, ASPIRATION AND SEIZURE PRECAUTIONS IN PLACE: CALL LIGHT WITHIN REACH, BED IN LOW POSITION AND BED ALARM ON, HOB ELEVATED, SIDE RAILS PADDED. WILL CONTINUE WITH PLAN OF CARE
--- NOTE | 2019-09-12 19:36 | NUR ---
HAND-OFF: Report given to Jose Ramon Chaves. PLan of care endorsed.
--- NOTE | 2019-09-12 20:15 | Neurology Progress Note ---
Interim History Interim History Interim History Mr. Rolando Zaidi is a 59-year-old, left-handed, black gentleman, who has a past history of developmental delay. He was brought into the hospital for new onset generalized tonic-clonic seizure. When he was brought into the emergency room he was hypoglycemic, hyponatremic and anemic. Since he has been in the hospital he has had no further seizures. He feels well today and denies any seizures or new neurological symptoms. He was unable to get his MRI of the brain as he was unable to stay still even after sedation. Review of Systems Neuro Review of Systems Benign. Objective Physical Exam Last Vital Signs Date Time Temp Pulse Resp B/P (MAP) Pulse Ox O2 Delivery O2 Flow Rate FiO2 09/12/19 18:00 60 09/12/19 16:00 97.5 18 105/51 (69) 99 09/12/19 09:00 Room Air Laboratory Tests Test 09/12/19 08:30 09/12/19 11:58 Lactic Acid Level 1.30 mmol/L (0.4-2.0) Hepatitis A IgM Antibody Pending Hepatitis B Surface Antigen Pending Hepatitis B Core IgM Antibody Pending Hepatitis C Antibody Pending HIV (1&2) Antibody Rapid Negative (NEGATIVE) Urine Color Yellow Urine Appearance Cloudy Urine pH 7 (4.5-8.0) Urine Specific [place] 1.010 (1.005-1.035) Urine Protein Negative (NEGATIVE) Urine Glucose (UA) Negative (NEGATIVE) Urine Ketones Negative (NEGATIVE) Urine Blood 1+ (NEGATIVE) H Urine Nitrite Positive (NEGATIVE) H Urine Bilirubin Negative (NEGATIVE) Urine Urobilinogen Normal MG/DL (0.0-1.0) Urine Leukocyte Esterase 2+ (NEGATIVE) H Urine RBC 0-2 /HPF (0 - 0) H Urine WBC 10-15 /HPF (0 - 0) H Urine Squamous Epithelial Cells Occasional /LPF Urine Bacteria Many /HPF (NONE) H Urine Osmolality 421 mOsm/kg (429-449) L Urine Random Sodium 120 mmol/L (20-110) H Urine Opiates Screen Negative (NEGATIVE) Urine Barbiturates Screen Negative (NEGATIVE) Phencyclidine (PCP) Screen Negative (NEGATIVE) Urine Amphetamines Screen Negative (NEGATIVE) Urine Benzodiazepines Screen Negative (NEGATIVE) Urine Cocaine Screen Negative (NEGATIVE) Urine Marijuana (THC) Screen Negative (NEGATIVE) Neurologic Exam Objective PHYSICAL EXAMINATION: GENERAL: He is a well-developed, relatively well-nourished, black gentleman, lying in bed, with an odd physiognomy. HEAD: Normocephalic and atraumatic. NECK: No neck rigidity was observed. EENT examination: Benign NEUROLOGICAL EXAMINATION: MENTAL STATUS EXAMINATION: He was awake and alert. He was oriented to self only. He had no idea of where he was or what the date was. He was able to recall 3/3 words immediately, but could not remember them after 1 and 3 minutes. He was unable to tell me who the president president was and who prior presidents were. His mathematical skills were impaired even for single-digit calculations. His visuospatial function was also impaired. SPEECH: He had a moderate dysarthria. LANGUAGE: He had problems with comprehension, repetition, naming, and expression of language. CRANIAL NERVES: II: The visual wheat were intact on confrontation testing. III, IV, and : Extraocular movements were full. Pupils were 3 mm in diameter equal, round, regular, and reactive to light. V: Facial sensations were normal, and the temporales, masseters, and pterygoids functioned normally. VII: Facial expressions were normal and no facial asymmetry was noted. VIII: Hearing was normal bilaterally and no nystagmus was observed. IX: The palate moved symmetrically on phonation. X: No hoarseness of voice was observed. XI: The sternocleidomastoids and trapezii functioned normally. XII: The tongue was in the midline without any fasciculations or atrophy. MOTOR EXAMINATION: The tone was increased in all 4 extremities with spasticity. Examination of muscle mass revealed generalized muscle wasting. Examination of power was impossible to perform because he was unable to cooperate he however moved all 4 extremities on command. SENSORY EXAMINATION: He was able to localize light touch. He was unable to cooperate for the sensory modalities. COORDINATION: Qnvakn-[id number]-mivp and vunh-[id number] testing were attempted but he was severely apractic. REFLEXES: 1+ and bilaterally symmetrical at the biceps, triceps, brachioradialis, and knees. 0 at both ankles. The plantar responses were flexor. STANCE & GAIT: Unable to test as patient said that he cannot stand and walk. Impression/Recommendations Diagnostic Impression DIAGNOSTIC IMPRESSION: 1. Mr. Rolando Zaidi is a 59-year-old, left-handed, black gentleman, who has a past history of developmental delay. He was brought into the hospital for new onset generalized tonic-clonic seizure. 2. When he was brought into the emergency room he was hypoglycemic, hyponatremic and anemic. 3. Since he has been in the hospital he has had no further seizures. He feels well today and denies any seizures or new neurological symptoms. He was unable to get his MRI of the brain as he was unable to stay still even after sedation. 4. On neurological examination, at this time, he exhibits severe cognitive dysfunction, spasticity in all 4 extremities, generalized weakness, globally diminished deep tendon reflexes, and inability to stand and walk. 5. A CT scan of the brain without contrast performed on 09/10/2019 was normal. 6. Laboratory data on my initial evaluation revealed a hemoglobin low at 11.7, a low sodium at 129, a low glucose at 63, an elevated TSH at 7.63 with a normal free T4 at 1.04. 7. The EEG done on 09/11/19 was normal in the awake and drowsy states. 8. It is unclear at this point in time as to whether the patient's seizure was related to hypoglycemia and hyponatremia versus a seizure due intracranial pathology. The former is more likely with the CT of the brain and EEG being normal. 9. He has been seizure free since he was hospitalized. Recommendations RECOMMENDATIONS: 1. Continue present management. 2. Discontinue Keppra as the seizure was most probably a symptomatic seizure due to hypoglycemia and hyponatremia. 3. No further neurologic interventions at this time. Dashawn Tavera M.D., M.S.P.H. Neurologist & Clinical Neurophysiologist Dashawn Tavera MD Sep 12, 2019 20:15
--- NOTE | 2019-09-12 21:22 | General Progress Note ---
Assessment/Plan Problem List: (1) Hypoglycemia ICD Codes: E16.2 - Hypoglycemia, unspecified SNOMED: 881975225 (2) Hyponatremia ICD Codes: E87.1 - Hypo-osmolality and hyponatremia SNOMED: 57942742 (3) Epileptic seizure, generalized ICD Codes: G40.309 - Generalized idiopathic epilepsy and epileptic syndromes, not intractable, without status epilepticus SNOMED: 63592683 (4) Electrolyte imbalance ICD Codes: E87.8 - Other disorders of electrolyte and fluid balance, not elsewhere classified SNOMED: 483248738 (5) Hypothyroid ICD Codes: E03.9 - Hypothyroidism, unspecified SNOMED: 94985083 Status: progressing Assessment/Plan: dc in am na improved and sugar improved hypoglycemai lyte abnormality seizure reviewed chart and labs Subjective ROS Limited/Unobtainable: Yes Allergies: Coded Allergies: No Known Allergies (Unverified , 06/18/19) Objective Last 24 Hour Vital Signs Date Time Temp Pulse Resp B/P (MAP) Pulse Ox O2 Delivery O2 Flow Rate FiO2 09/12/19 18:00 60 09/12/19 16:00 97.5 56 18 105/51 (69) 99 56 09/12/19 12:00 97.7 60 18 130/65 (86) 99 60 09/12/19 12:00 60 09/12/19 09:00 Room Air 09/12/19 08:00 97.0 56 18 138/65 (89) 98 56 09/12/19 08:00 81 09/12/19 06:00 97.0 09/12/19 04:01 49 09/12/19 04:00 96.1 47 16 103/53 (70) 99 09/12/19 03:00 96.1 09/12/19 00:00 91.0 58 16 134/69 (90) 100 09/12/19 00:00 50 Intake and Output 09/11/19 09/12/19 18:59 06:59 Intake Total 280 ml Balance 280 ml Intake Oral 280 ml # Voids 3 Laboratory Tests 09/12/19 08:30: Lactic Acid Level 1.30, Hepatitis A IgM Antibody [Pending], Hepatitis B Surface Antigen [Pending], Hepatitis B Core IgM Antibody [Pending], Hepatitis C Antibody [Pending], HIV (1&2) Antibody Rapid Negative 09/12/19 11:58: Urine Color Yellow, Urine Appearance Cloudy, Urine pH 7, Urine Specific [place] 1.010, Urine Protein Negative, Urine Glucose (UA) Negative, Urine Ketones Negative, Urine Blood 1+H, Urine Nitrite PositiveH, Urine Bilirubin Negative, Urine Urobilinogen Normal, Urine Leukocyte Esterase 2+H, Urine RBC 0-2H, Urine WBC 10-15H, Urine Squamous Epithelial Cells Occasional, Urine Bacteria ManyH, Urine Osmolality 421L, Urine Random Sodium 120H, Urine Opiates Screen Negative, Urine Barbiturates Screen Negative, Phencyclidine (PCP) Screen Negative, Urine Amphetamines Screen Negative, Urine Benzodiazepines Screen Negative, Urine Cocaine Screen Negative, Urine Marijuana (THC) Screen Negative Height (Feet): 5 Height (Inches): 9.00 Weight (Pounds): 150 Neck: supple Cardiovascular: normal rate Respiratory/Chest: lungs clear Abdomen: soft Xenia Sheets MD Sep 12, 2019 21:22
[2019-09-13] VITALS: BP 119/62
[2019-09-13] MEDS: Hydrocortisone 2.5% Oint 30gm TOPIC PRN (00:10)
[2019-09-13 04:00] VITALS: BP 145/67
--- NOTE | 2019-09-13 06:52 | General Progress Note ---
Assessment/Plan Problem List: (1) Hypoglycemia ICD Codes: E16.2 - Hypoglycemia, unspecified SNOMED: 676346290 (2) Epileptic seizure, generalized ICD Codes: G40.309 - Generalized idiopathic epilepsy and epileptic syndromes, not intractable, without status epilepticus SNOMED: 97970372 (3) Hyponatremia ICD Codes: E87.1 - Hypo-osmolality and hyponatremia SNOMED: 90392630 Status: progressing Assessment/Plan: adrenal insufficiency is ruled out - he passed Cortrosyn stimulation test on 09/10 TSH repeated and improved and free T4 is normal - this is most likely due to sick euthyroid - no need to start thyroxine - repeat thyroid function in 3 weeks I sign off Subjective ROS Limited/Unobtainable: Yes Allergies: Coded Allergies: No Known Allergies (Unverified , 06/18/19) Subjective events noted - interval notes reviewed Objective Last 24 Hour Vital Signs Date Time Temp Pulse Resp B/P (MAP) Pulse Ox O2 Delivery O2 Flow Rate FiO2 09/13/19 04:00 96.9 56 18 145/67 (93) 97 56 09/13/19 04:00 64 09/13/19 00:00 67 09/13/19 00:00 96.7 50 18 119/62 (81) 96 56 09/12/19 21:00 Room Air 09/12/19 20:00 50 09/12/19 18:00 60 09/12/19 16:00 97.5 56 18 105/51 (69) 99 56 09/12/19 12:00 97.7 60 18 130/65 (86) 99 60 09/12/19 12:00 60 09/12/19 09:00 Room Air 09/12/19 08:00 97.0 56 18 138/65 (89) 98 56 09/12/19 08:00 81 Intake and Output 09/12/19 09/13/19 19:00 07:00 Intake Total 320 ml 120 ml Output Total 400 ml Balance -80 ml 120 ml Intake Oral 320 ml 120 ml Output Urine Total 400 ml # Voids 3 # Bowel Movements 1 Laboratory Tests 09/12/19 08:30: Lactic Acid Level 1.30, Hepatitis A IgM Antibody Negative, Hepatitis B Surface Antigen Negative, Hepatitis B Core IgM Antibody Negative, Hepatitis C Antibody < 0.1, HIV (1&2) Antibody Rapid Negative 09/12/19 11:58: Urine Color Yellow, Urine Appearance Cloudy, Urine pH 7, Urine Specific [place] 1.010, Urine Protein Negative, Urine Glucose (UA) Negative, Urine Ketones Negative, Urine Blood 1+H, Urine Nitrite PositiveH, Urine Bilirubin Negative, Urine Urobilinogen Normal, Urine Leukocyte Esterase 2+H, Urine RBC 0-2H, Urine WBC 10-15H, Urine Squamous Epithelial Cells Occasional, Urine Bacteria ManyH, Urine Osmolality 421L, Urine Random Sodium 120H, Urine Opiates Screen Negative, Urine Barbiturates Screen Negative, Phencyclidine (PCP) Screen Negative, Urine Amphetamines Screen Negative, Urine Benzodiazepines Screen Negative, Urine Cocaine Screen Negative, Urine Marijuana (THC) Screen Negative 09/13/19 06:08: White Blood Count [Pending], Red Blood Count [Pending], Hemoglobin [Pending], Hematocrit [Pending], Mean Corpuscular Volume [Pending], Mean Corpuscular Hemoglobin [Pending], Mean Corpuscular Hemoglobin Concent [Pending], Red Cell Distribution Width [Pending], Platelet Count [Pending], Mean Platelet Volume [ Pending], Neutrophils (%) (Auto) [Pending], Lymphocytes (%) (Auto) [Pending], Monocytes (%) (Auto) [Pending], Eosinophils (%) (Auto) [Pending], Basophils (%) (Auto) [Pending], Sodium Level [Pending], Potassium Level [Pending], Chloride Level [Pending], Carbon Dioxide Level [Pending], Blood Urea Nitrogen [Pending], Creatinine [Pending], Estimat Glomerular Filtration Rate [Pending], Glucose Level [Pending], Uric Acid [Pending], Calcium Level [Pending], Phosphorus Level [Pending], Magnesium Level [Pending], Total Bilirubin [Pending], Aspartate Amino Transf (AST/SGOT) [Pending], Alanine Aminotransferase (ALT/SGPT) [Pending] , Alkaline Phosphatase [Pending], Total Protein [Pending], Albumin [Pending], Globulin [Pending] Height (Feet): 5 Height (Inches): 9.00 Weight (Pounds): 100 General Appearance: no apparent distress Neck: normal alignment Cardiovascular: normal rate Respiratory/Chest: lungs clear Abdomen: normal bowel sounds Pelvis: normal external exam Objective Current Medications Medications (Trade) Dose Ordered Sig/Edwin Route PRN Reason Start Time Stop Time Status Last Admin Dose Admin Acetaminophen (Tylenol) 650 mg Q4H PRN ORAL Mild Pain/Temp > 100.5 09/10/19 10:00 10/10/19 09:59 Dextrose (Dextrose 50%) 25 ml Q30M PRN IV Hypoglycemia 09/10/19 10:00 10/10/19 09:59 Dextrose (Dextrose 50%) 50 ml Q30M PRN IV Hypoglycemia 09/10/19 10:00 10/10/19 09:59 Docusate Sodium (Colace) 100 mg TWICE A DAY ORAL 09/10/19 18:00 10/10/19 17:59 09/12/19 17:29 Gadobutrol (Gadavist) 7.5 mmol NOW PRN IV Radiology Procedure 09/10/19 13:45 09/14/19 13:39 Hydrocortisone (Hydrocortisone) 1 applic Q4H PRN TOPIC Itching 09/10/19 13:15 10/10/19 13:14 09/13/19 00:10 Pantoprazole (Protonix) 40 mg BID ORAL 09/10/19 18:00 10/10/19 10:14 09/12/19 17:29 Marky Baird MD Sep 13, 2019 06:52
[2019-09-13 06:55] LABS: BASOPHILS % (AUTO) 1.6 % (0.0-2.0); EOSINOPHILS % (AUTO) 3.9 % (0.0-3.0); HEMOGLOBIN 11.6 G/DL (14.2-18.0); LYMPHOCYTES % (AUTO) 18.7 % (20.0-45.0); MEAN CORPUSCULAR VOLUME 76 FL (80-99); MONOCYTES % (AUTO) 9.3 % (1.0-10.0); NEUTROPHILS % (AUTO) 66.6 % (45.0-75.0); PLATELET COUNT 282 K/UL (150-450); RED BLOOD COUNT 4.34 M/UL (4.70-6.10); RED CELL DISTRIBUTION WIDTH 14.6 % (11.6-14.8); WHITE BLOOD COUNT 3.8 K/UL (4.8-10.8)
--- NOTE | 2019-09-13 07:30 | NUR ---
HAND-OFF: Report given to Kelsey MONREAL RN PATIENT ASLEEP, NO SIGNS OF DISTRESS NOTED.
[2019-09-13 07:48] LABS: ALANINE AMINOTRANSFERASE 38 U/L (12-78); ALBUMIN 2.5 G/DL (3.4-5.0); ALBUMIN/GLOBULIN RATIO 0.7 (1.0-2.7); ALKALINE PHOSPHATASE 85 U/L (46-116); ANION GAP 7 mmol/L (5-15); ASPARTATE AMINO TRANSFERASE 36 U/L (15-37); BILIRUBIN,TOTAL 0.2 MG/DL (0.2-1.0); BLOOD UREA NITROGEN 11 mg/dL (7-18); CALCIUM 8.8 MG/DL (8.5-10.1); CARBON DIOXIDE 28 MMOL/L (21-32); CHLORIDE 108 MMOL/L (98-107); CREATININE 0.9 MG/DL (0.55-1.30); PHOSPHORUS 3.1 MG/DL (2.5-4.9); POTASSIUM 4.1 MMOL/L (3.5-5.1); SODIUM 143 MMOL/L (136-145)
[2019-09-13 08:00] VITALS: BP 123/70
[2019-09-13] MEDS: Docusate 100mg/10ml Liq ORAL SCH ×2 (09:58→17:53)
[2019-09-13] MEDS ORDERED: ACETAMINOPHEN325 M1 ORAL (10:37)
[2019-09-13] MEDS ORDERED: DOCU LIQUI50 MG/5 M1 PO (10:40)
[2019-09-13] MEDS ORDERED: HYDROCORTISONE28 G2 TP (10:45)
[2019-09-13] MEDS ORDERED: PROTONIX40 MG ORAL (10:46)
[2019-09-13 12:00] VITALS: BP 117/80
--- NOTE | 2019-09-13 12:09 | Cardiac Electrophysiology PN ---
Assessment/Plan Assessment/Plan 1. Bradycardia.Off SNYDER or VN isabela. Could be due to Keppra. HR not critically low. Echo EF 55%. May be hypothyroid 2. Developmental delay 3. Seizure. FU Dr. Tavera 4. Leukopenia, FU Dr Siddiqi 5. High TSH. Could be hypothyroid TSH elevated and free T4 is normal - this represents "subclinical hypothyroidism" vs "sick euthyroid" per Dr Oli DEAN RN Subjective Subjective No arrhythmias. HR 40-50s. Laying in bed in NAD Objective Last 24 Hour Vital Signs Date Time Temp Pulse Resp B/P (MAP) Pulse Ox O2 Delivery O2 Flow Rate FiO2 09/13/19 08:00 97.3 60 15 123/70 (87) 97 59 09/13/19 08:00 47 09/13/19 04:00 96.9 56 18 145/67 (93) 97 56 09/13/19 04:00 64 09/13/19 00:00 67 09/13/19 00:00 96.7 50 18 119/62 (81) 96 56 09/12/19 21:00 Room Air 09/12/19 20:00 50 09/12/19 18:00 60 09/12/19 16:00 97.5 56 18 105/51 (69) 99 56 Intake and Output 09/12/19 09/13/19 19:00 07:00 Intake Total 320 ml 120 ml Output Total 400 ml Balance -80 ml 120 ml Intake Oral 320 ml 120 ml Output Urine Total 400 ml # Voids 3 # Bowel Movements 1 Laboratory Tests Test 09/13/19 06:08 White Blood Count 3.8 K/UL (4.8-10.8) L Red Blood Count 4.34 M/UL (4.70-6.10) L Hemoglobin 11.6 G/DL (14.2-18.0) L Hematocrit 33.0 % (42.0-52.0) L Mean Corpuscular Volume 76 FL (80-99) L Mean Corpuscular Hemoglobin 26.6 PG (27.0-31.0) L Mean Corpuscular Hemoglobin Concent 35.1 G/DL (32.0-36.0) Red Cell Distribution Width 14.6 % (11.6-14.8) Platelet Count 282 K/UL (150-450) Mean Platelet Volume 6.4 FL (6.5-10.1) L Neutrophils (%) (Auto) 66.6 % (45.0-75.0) Lymphocytes (%) (Auto) 18.7 % (20.0-45.0) L Monocytes (%) (Auto) 9.3 % (1.0-10.0) Eosinophils (%) (Auto) 3.9 % (0.0-3.0) H Basophils (%) (Auto) 1.6 % (0.0-2.0) Sodium Level 143 MMOL/L (136-145) Potassium Level 4.1 MMOL/L (3.5-5.1) Chloride Level 108 MMOL/L (98-107) H Carbon Dioxide Level 28 MMOL/L (21-32) Anion Gap 7 mmol/L (5-15) Blood Urea Nitrogen 11 mg/dL (7-18) Creatinine 0.9 MG/DL (0.55-1.30) Estimat Glomerular Filtration Rate > 60 mL/min (>60) Glucose Level 71 MG/DL (74-106) L Uric Acid 3.5 MG/DL (2.6-7.2) Calcium Level 8.8 MG/DL (8.5-10.1) Phosphorus Level 3.1 MG/DL (2.5-4.9) Magnesium Level 1.6 MG/DL (1.8-2.4) L Total Bilirubin 0.2 MG/DL (0.2-1.0) Aspartate Amino Transf (AST/SGOT) 36 U/L (15-37) Alanine Aminotransferase (ALT/SGPT) 38 U/L (12-78) Alkaline Phosphatase 85 U/L (46-116) Total Protein 5.9 G/DL (6.4-8.2) L Albumin 2.5 G/DL (3.4-5.0) L Globulin 3.4 g/dL Albumin/Globulin Ratio 0.7 (1.0-2.7) L Microbiology Date/Time Source Procedure Growth Status 09/12/19 11:58 Urine,Clean Catch Urine Culture - Preliminary Resulted Objective HEENT: No JVD Pulm: CTA CV: rrr, no mgr Abd: soft, nd, nt Ext: no Sreekanth Brito MD Sep 13, 2019 12:09
--- NOTE | 2019-09-13 12:15 | Consultation ---
DATE OF CONSULTATION: 09/11/2019 CARDIOLOGY CONSULTATION CONSULTING PHYSICIAN: Sreekanth Dong M.D. REFERRING PHYSICIAN: Xenia Sheets M.D. REASON FOR CONSULTATION: Bradycardia. HISTORY OF PRESENT ILLNESS: The patient is a 89-year-old gentleman with history of developmental delay, who lives at home, was brought in for new-onset seizures that was witnessed by the family, which was tonic- clonic movement lasting a few minutes. The patient denies any chest pain or shortness of breath. The patient overnight, however, got bradycardic with heart rate dropping to 34. Cardiac electrophysiology consultation was obtained for further evaluation and management. REVIEW OF SYSTEMS: Negative other than what was mentioned in the history of present illness. PAST MEDICAL HISTORY: As mentioned above. FAMILY HISTORY: Noncontributory. SOCIAL HISTORY: He lives at home. Does not smoke or drink alcohol. PHYSICAL EXAMINATION: VITAL SIGNS: Showed blood pressure 124/70, pulse 55, respirations 18, and temperature 97.7. HEAD AND NECK: No JVD. LUNGS: Clear. CARDIOVASCULAR: Bradycardic, S1 and S2 with no gallop or murmur. ABDOMEN: Soft. EXTREMITIES: No pitting edema. LABORATORY DATA: Labs show white count of 2.7, hemoglobin 12.7, hematocrit 35, and platelet count 290,000. Sodium 130, potassium 4.6, BUN of 10, creatinine 0.8, and glucose of 84. TSH was 5.918. Free T4 is normal. ASSESSMENT AND PLAN: 1. Bradycardia. This is sinus bradycardia likely due to the patient's Keppra. Heart rate is not critically low and mostly in the 50s. We will get an echocardiogram and repeat cardiac enzymes for further evaluation. 2. New-onset seizures. The patient is on Keppra. Further evaluation by Dr. Tavera. 3. Hypoglycemia, followed by Dr. Baird. 4. Hyponatremia. 5. Elevated TSH due to subclinical hypothyroidism versus sick euthyroid per Dr. Baird. TSH will be repeated. Thank you very much for allowing me to participate in the care of this patient. Please do not hesitate to contact me for any questions regarding my evaluation. Sreekanth Dong M.D. DR: Demetrio JOB#: [id number] CC:
--- NOTE | 2019-09-13 12:27 | Nephrology Progress Note ---
Assessment/Plan Problem List: (1) Hyponatremia Assessment: resolved (2) Epileptic seizure, generalized (3) Electrolyte imbalance (4) Hypothyroid Assessment: Euthyroid Assessment Low Na , Low Uric acid likely mild SIADH Sz Developmental delay Mild Anemia Plan Fluid restriction Mag IV Keppra St eval Subjective ROS Limited/Unobtainable: No Objective Objective Last 24 Hour Vital Signs Date Time Temp Pulse Resp B/P (MAP) Pulse Ox O2 Delivery O2 Flow Rate FiO2 09/13/19 08:00 97.3 60 15 123/70 (87) 97 59 09/13/19 08:00 47 09/13/19 04:00 96.9 56 18 145/67 (93) 97 56 09/13/19 04:00 64 09/13/19 00:00 67 09/13/19 00:00 96.7 50 18 119/62 (81) 96 56 09/12/19 21:00 Room Air 09/12/19 20:00 50 09/12/19 18:00 60 09/12/19 16:00 97.5 56 18 105/51 (69) 99 56 Intake and Output 09/12/19 09/13/19 19:00 07:00 Intake Total 320 ml 120 ml Output Total 400 ml Balance -80 ml 120 ml Intake Oral 320 ml 120 ml Output Urine Total 400 ml # Voids 3 # Bowel Movements 1 Current Medications Medications (Trade) Dose Ordered Sig/Edwin Route PRN Reason Start Time Stop Time Status Last Admin Dose Admin Acetaminophen (Tylenol) 650 mg Q4H PRN ORAL Mild Pain/Temp > 100.5 09/10/19 10:00 10/10/19 09:59 Dextrose (Dextrose 50%) 25 ml Q30M PRN IV Hypoglycemia 09/10/19 10:00 10/10/19 09:59 Dextrose (Dextrose 50%) 50 ml Q30M PRN IV Hypoglycemia 09/10/19 10:00 10/10/19 09:59 Docusate Sodium (Colace) 100 mg TWICE A DAY ORAL 09/13/19 09:30 10/13/19 09:29 09/13/19 09:58 Gadobutrol (Gadavist) 7.5 mmol NOW PRN IV Radiology Procedure 09/10/19 13:45 09/14/19 13:39 Hydrocortisone (Hydrocortisone) 1 applic Q4H PRN TOPIC Itching 09/10/19 13:15 10/10/19 13:14 09/13/19 00:10 Magnesium Sulfate 100 ml @ 100 mls/hr Q1H IVPB 09/13/19 10:00 09/13/19 13:59 09/13/19 12:19 Pantoprazole (Protonix) 40 mg BID ORAL 09/10/19 18:00 10/10/19 10:14 09/13/19 09:27 Laboratory Tests 09/13/19 06:08: White Blood Count 3.8L, Red Blood Count 4.34L, Hemoglobin 11.6L, Hematocrit 33.0L, Mean Corpuscular Volume 76L, Mean Corpuscular Hemoglobin 26.6L, Mean Corpuscular Hemoglobin Concent 35.1, Red Cell Distribution Width 14.6, Platelet Count 282, Mean Platelet Volume 6.4L, Neutrophils (%) (Auto) 66.6, Lymphocytes ( %) (Auto) 18.7L, Monocytes (%) (Auto) 9.3, Eosinophils (%) (Auto) 3.9H, Basophils (%) (Auto) 1.6, Sodium Level 143, Potassium Level 4.1, Chloride Level 108H, Carbon Dioxide Level 28, Anion Gap 7, Blood Urea Nitrogen 11, Creatinine 0.9, Estimat Glomerular Filtration Rate > 60, Glucose Level 71L, Uric Acid 3.5, Calcium Level 8.8, Phosphorus Level 3.1, Magnesium Level 1.6L, Total Bilirubin 0.2, Aspartate Amino Transf (AST/SGOT) 36, Alanine Aminotransferase (ALT/SGPT) 38, Alkaline Phosphatase 85, Total Protein 5.9L, Albumin 2.5L, Globulin 3.4, Albumin/Globulin Ratio 0.7L Height (Feet): 5 Height (Inches): 9.00 Weight (Pounds): 100 General Appearance: no apparent distress Objective no change Yohannes King MD Sep 13, 2019 12:27
--- NOTE | 2019-09-13 14:15 | Hematology/Onc Progress Note ---
Assessment/Plan Assessment/Plan Assessment and Recs: # Leukopenia may be related to SIRs v sepsis is new onset --> obtain urine, blood cultures, cxr as needed --> abx as needed, consider Id eval --> smear to be reviewed, no schistocytes noted --> consider neupogen to goal ANC>1500 --> HEP and HIV orderd-->NEG --> US of the abd ordered as well-->No sonographic evidence for chronic liver disease identified. --> endo consulted, considers as sick euthyroid # Epileptic seizure, generalized --> as per neuro recs --> eeg as needed # Hypoglycemia --> endo eval # Hyponatremia --> as per Dr. Fernando sanderson Appreciate consultation and vasyl RN Subjective Constitutional: Denies: no symptoms, chills, fever, malaise, weakness, other HEENT: Denies: no symptoms, eye pain, blurred vision, tearing, double vision, ear pain, ear discharge, nose pain, nose congestion, throat pain, throat swelling, mouth pain, mouth swelling, other Cardiovascular: Denies: no symptoms, chest pain, edema, irregular heart rate, lightheadedness, palpitations, syncope, other Respiratory: Denies: no symptoms, cough, shortness of breath, SOB with excertion, SOB at rest, sputum, wheezing, other Genitourinary: Denies: no symptoms, burning, discharge, frequency, flank pain, hematuria, incontinence, pain, urgency, other Neurologic/Psychiatric: Denies: no symptoms, anxiety, depressed, emotional problems, headache, numbness, paresthesia, pre-existing deficit, seizure, tingling, tremors, weakness, other Endocrine: Denies: no symptoms, excessive sweating, flushing, intolerance to cold, intolerance to heat, increased hunger, increased thirst, increased urine, unexplained weight gain, unexplained weight loss, other Hematologic/Lymphatic: Denies: no symptoms, anemia, easy bleeding, easy bruising, adenopathy, other Allergies: Coded Allergies: No Known Allergies (Unverified , 06/18/19) Subjective 2/5: no major chnages, no bleeding, or night sweats reported Objective Objective Current Medications Medications (Trade) Dose Ordered Sig/Edwin Route PRN Reason Start Time Stop Time Status Last Admin Dose Admin Acetaminophen (Tylenol) 650 mg Q4H PRN ORAL Mild Pain/Temp > 100.5 09/10/19 10:00 10/10/19 09:59 Dextrose (Dextrose 50%) 25 ml Q30M PRN IV Hypoglycemia 09/10/19 10:00 10/10/19 09:59 Dextrose (Dextrose 50%) 50 ml Q30M PRN IV Hypoglycemia 09/10/19 10:00 10/10/19 09:59 Docusate Sodium (Colace) 100 mg TWICE A DAY ORAL 09/13/19 09:30 10/13/19 09:29 09/13/19 09:58 Gadobutrol (Gadavist) 7.5 mmol NOW PRN IV Radiology Procedure 09/10/19 13:45 09/14/19 13:39 Hydrocortisone (Hydrocortisone) 1 applic Q4H PRN TOPIC Itching 09/10/19 13:15 10/10/19 13:14 09/13/19 00:10 Pantoprazole (Protonix) 40 mg BID ORAL 09/10/19 18:00 10/10/19 10:14 09/13/19 09:27 Last 24 Hour Vital Signs Date Time Temp Pulse Resp B/P (MAP) Pulse Ox O2 Delivery O2 Flow Rate FiO2 09/13/19 08:00 97.3 60 15 123/70 (87) 97 59 09/13/19 08:00 47 09/13/19 04:00 96.9 56 18 145/67 (93) 97 56 09/13/19 04:00 64 09/13/19 00:00 67 09/13/19 00:00 96.7 50 18 119/62 (81) 96 56 09/12/19 21:00 Room Air 09/12/19 20:00 50 09/12/19 18:00 60 09/12/19 16:00 97.5 56 18 105/51 (69) 99 56 09/12/19 12:00 97.7 60 18 130/65 (86) 99 60 09/12/19 12:00 60 09/12/19 09:00 Room Air 09/12/19 08:00 97.0 56 18 138/65 (89) 98 56 09/12/19 08:00 81 09/12/19 06:00 97.0 09/12/19 04:01 49 2/4/20 04:00 96.1 47 16 103/53 (70) 99 09/12/19 03:00 96.1 09/12/19 00:00 91.0 58 16 134/69 (90) 100 09/12/19 00:00 50 09/11/19 21:00 Room Air 09/11/19 20:00 50 16 123/44 (70) 99 09/11/19 20:00 53 09/11/19 16:00 55 Intake and Output 09/12/19 09/13/19 19:00 07:00 Intake Total 320 ml 120 ml Output Total 400 ml Balance -80 ml 120 ml Intake Oral 320 ml 120 ml Output Urine Total 400 ml # Voids 3 # Bowel Movements 1 Labs Test 09/10/19 15:05 09/11/19 06:45 09/12/19 08:30 09/12/19 11:58 Cortisol 21.8 UG/DL Adrenocorticotropic Hormone 22.5 pg/mL (7.2-63.3) White Blood Count 2.6 K/UL (4.8-10.8) Red Blood Count 4.60 M/UL (4.70-6.10) Hemoglobin 12.7 G/DL (14.2-18.0) Hematocrit 35.3 % (42.0-52.0) Mean Corpuscular Volume 77 FL (80-99) Mean Corpuscular Hemoglobin 27.6 PG (27.0-31.0) Mean Corpuscular Hemoglobin Concent 36.0 G/DL (32.0-36.0) Red Cell Distribution Width 14.6 % (11.6-14.8) Platelet Count 290 K/UL (150-450) Mean Platelet Volume 6.3 FL (6.5-10.1) Neutrophils (%) (Auto) % (45.0-75.0) Lymphocytes (%) (Auto) % (20.0-45.0) Monocytes (%) (Auto) % (1.0-10.0) Eosinophils (%) (Auto) % (0.0-3.0) Basophils (%) (Auto) % (0.0-2.0) Differential Total Cells Counted 100 Neutrophils % (Manual) 80 % (45-75) Lymphocytes % (Manual) 15 % (20-45) Monocytes % (Manual) 5 % (1-10) Eosinophils % (Manual) 0 % (0-3) Basophils % (Manual) 0 % (0-2) Band Neutrophils 0 % (0-8) Platelet Estimate Adequate Platelet Morphology Normal Microcytosis 1+ Sodium Level 135 MMOL/L (136-145) Potassium Level 4.7 MMOL/L (3.5-5.1) Chloride Level 100 MMOL/L (98-107) Carbon Dioxide Level 26 MMOL/L (21-32) Anion Gap 9 mmol/L (5-15) Blood Urea Nitrogen 9 mg/dL (7-18) Creatinine 0.8 MG/DL (0.55-1.30) Estimat Glomerular Filtration Rate > 60 mL/min (>60) Glucose Level 84 MG/DL (74-106) Uric Acid 2.8 MG/DL (2.6-7.2) Calcium Level 8.2 MG/DL (8.5-10.1) Phosphorus Level 3.8 MG/DL (2.5-4.9) Magnesium Level 2.5 MG/DL (1.8-2.4) Total Bilirubin 0.2 MG/DL (0.2-1.0) Aspartate Amino Transf (AST/SGOT) 67 U/L (15-37) Alanine Aminotransferase (ALT/SGPT) 49 U/L (12-78) Alkaline Phosphatase 104 U/L (46-116) Total Protein 6.8 G/DL (6.4-8.2) Albumin 3.0 G/DL (3.4-5.0) Globulin 3.8 g/dL Albumin/Globulin Ratio 0.8 (1.0-2.7) Thyroid Stimulating Hormone (TSH) 6.203 uiU/mL (0.358-3.740) Free Thyroxine 1.10 NG/DL (0.76-1.46) Lactic Acid Level 1.30 mmol/L (0.4-2.0) Hepatitis A IgM Antibody Negative (Negative) Hepatitis B Surface Antigen Negative (Negative) Hepatitis B Core IgM Antibody Negative (Negative) Hepatitis C Antibody <0.1 s/co ratio HIV (1&2) Antibody Rapid Negative (NEGATIVE) Urine Color Yellow Urine Appearance Cloudy Urine pH 7 (4.5-8.0) Urine Specific [place] 1.010 (1.005-1.035) Urine Protein Negative (NEGATIVE) Urine Glucose (UA) Negative (NEGATIVE) Urine Ketones Negative (NEGATIVE) Urine Blood 1+ (NEGATIVE) Urine Nitrite Positive (NEGATIVE) Urine Bilirubin Negative (NEGATIVE) Urine Urobilinogen Normal MG/DL (0.0-1.0) Urine Leukocyte Esterase 2+ (NEGATIVE) Urine RBC 0-2 /HPF (0 - 0) Urine WBC 10-15 /HPF (0 - 0) Urine Squamous Epithelial Cells Occasional /LPF Urine Bacteria Many /HPF (NONE) Urine Osmolality 421 mOsm/kg (429-449) Urine Random Sodium 120 mmol/L (20-110) Urine Opiates Screen Negative (NEGATIVE) Urine Barbiturates Screen Negative (NEGATIVE) Phencyclidine (PCP) Screen Negative (NEGATIVE) Urine Amphetamines Screen Negative (NEGATIVE) Urine Benzodiazepines Screen Negative (NEGATIVE) Urine Cocaine Screen Negative (NEGATIVE) Urine Marijuana (THC) Screen Negative (NEGATIVE) Test 09/13/19 06:08 White Blood Count 3.8 K/UL (4.8-10.8) Red Blood Count 4.34 M/UL (4.70-6.10) Hemoglobin 11.6 G/DL (14.2-18.0) Hematocrit 33.0 % (42.0-52.0) Mean Corpuscular Volume 76 FL (80-99) Mean Corpuscular Hemoglobin 26.6 PG (27.0-31.0) Mean Corpuscular Hemoglobin Concent 35.1 G/DL (32.0-36.0) Red Cell Distribution Width 14.6 % (11.6-14.8) Platelet Count 282 K/UL (150-450) Mean Platelet Volume 6.4 FL (6.5-10.1) Neutrophils (%) (Auto) 66.6 % (45.0-75.0) Lymphocytes (%) (Auto) 18.7 % (20.0-45.0) Monocytes (%) (Auto) 9.3 % (1.0-10.0) Eosinophils (%) (Auto) 3.9 % (0.0-3.0) Basophils (%) (Auto) 1.6 % (0.0-2.0) Sodium Level 143 MMOL/L (136-145) Potassium Level 4.1 MMOL/L (3.5-5.1) Chloride Level 108 MMOL/L (98-107) Carbon Dioxide Level 28 MMOL/L (21-32) Anion Gap 7 mmol/L (5-15) Blood Urea Nitrogen 11 mg/dL (7-18) Creatinine 0.9 MG/DL (0.55-1.30) Estimat Glomerular Filtration Rate > 60 mL/min (>60) Glucose Level 71 MG/DL (74-106) Uric Acid 3.5 MG/DL (2.6-7.2) Calcium Level 8.8 MG/DL (8.5-10.1) Phosphorus Level 3.1 MG/DL (2.5-4.9) Magnesium Level 1.6 MG/DL (1.8-2.4) Total Bilirubin 0.2 MG/DL (0.2-1.0) Aspartate Amino Transf (AST/SGOT) 36 U/L (15-37) Alanine Aminotransferase (ALT/SGPT) 38 U/L (12-78) Alkaline Phosphatase 85 U/L (46-116) Total Protein 5.9 G/DL (6.4-8.2) Albumin 2.5 G/DL (3.4-5.0) Globulin 3.4 g/dL Albumin/Globulin Ratio 0.7 (1.0-2.7) Height (Feet): 5 Height (Inches): 9.00 Weight (Pounds): 100 Objective Physical Exam Gen: Nad, hypotermic, T 96f Pulm: Ctab CV: rrr, no mgr Abd: soft, nd, nt Ext: no cce Jaskaran Lee MD Sep 13, 2019 14:15
--- NOTE | 2019-09-13 14:33 | NUR ---
RD ASSESSMENT & RECOMMENDATIONS SEE CARE ACTIVITY FOR COMPLETE ASSESSMENT DAILY ESTIMATED NEEDS: Needs based on Underweight/ 45kg 30-35 kcals/kg 9917-1868 total kcals 1-1.5 g protein/kg 45-67 g total protein 25-30 mL/kg 2888-8833 total fluid mLs NUTRITION DIAGNOSIS: Swallowing difficulty R/T dysphagia, h/o developmental delay as evidenced by BASKET GRADER recommends pureed moist texture w/ thin liquids. CURRENT DIET:REGULAR, pureed w/ thin liquids PO DIET RECOMMENDATIONS: REGULAR, texture per BASKET GRADER ADDITIONAL RECOMMENDATIONS: * Monitor BGs for hypoglycemia -> Rec HS snack to help prevent AM hypoglycemia * Calibrated bedscale wt EMR wt change from 68kg -> 45kg (09/13) * Monitor lytes, replete as needed (low mag)
--- NOTE | 2019-09-13 15:22 | NUR ---
SWALLOW STATUS: PATIENT ALERT BUT NOT INTERESTED IN PO TRIALS WITH EELER. EDUCATED/TRAINED TOP FRAME FITTER REBECCA IN POSTED ASP PRECAUTIONS. PER TOP FRAME FITTER, PATIENT ATE 75 TO 100% OF PUREED AND THIN LIQUID DIET W/O OVERT ASPIRATION AND INTAKE WAS TIMELY. PLAN: UPGRADE TO [facility] SOFT GROUND AND CONTINUE WITH THIN LIQUIDS WITH POSTED ASPIRATION PRECAUTIONS. PER RN, PATIENT MAY BE D/C SOON. COMPLETED MODIFIED BARIUM SWALLOW STUDY IP OR OP IF DC TO FURTHER ASSESS SWALLOW, DETERMINE SILENT ASP RISK/ETIOLOGY, AND ATTEMPT TRIAL TX TECHNIQUES (UNABLE TO COMPLETE TODAY DUE TO SCHEDULE CONFLICTS).
[2019-09-13 16:00] VITALS: BP 138/82
--- NOTE | 2019-09-13 19:20 | NUR ---
NURSE NOTES: Received pt from [facility] y[facility]. Pt is awake and resting in bed in no acute distress, no c/o pain. Pt on nasal cannula oxygen therapy with hob elevated. Iv sites intact. Bed locked in lowest position, bed alarm on, call light within reach. Will continue with plan of care Addendum: 09/13/19 at 2012 by GABRIELLA VYAS RN NURSE NOTES: Received pt from [facility] thompson. Pt is awake and resting in bed in no acute distress, no c/o pain. Pt on nasal cannula oxygen therapy with hob elevated. Iv sites intact. Bed locked in lowest position, bed alarm on, call light within reach. Will continue with plan of care
[2019-09-13 20:00] VITALS: BP 121/84
--- NOTE | 2019-09-13 20:38 | General Progress Note ---
Assessment/Plan Problem List: (1) Hypoglycemia ICD Codes: E16.2 - Hypoglycemia, unspecified SNOMED: 508842508 (2) Hyponatremia ICD Codes: E87.1 - Hypo-osmolality and hyponatremia SNOMED: 87539733 (3) Epileptic seizure, generalized ICD Codes: G40.309 - Generalized idiopathic epilepsy and epileptic syndromes, not intractable, without status epilepticus SNOMED: 47068780 (4) Electrolyte imbalance ICD Codes: E87.8 - Other disorders of electrolyte and fluid balance, not elsewhere classified SNOMED: 614574248 (5) Hypothyroid ICD Codes: E03.9 - Hypothyroidism, unspecified SNOMED: 83411860 Status: progressing Assessment/Plan: bradycardia severe at time dc if cleared by dr ponce roland abnormality seizure reviewed chart and labs Subjective ROS Limited/Unobtainable: Yes Allergies: Coded Allergies: No Known Allergies (Unverified , 06/18/19) Objective Last 24 Hour Vital Signs Date Time Temp Pulse Resp B/P (MAP) Pulse Ox O2 Delivery O2 Flow Rate FiO2 09/13/19 16:00 97.7 72 17 138/82 (100) 99 72 09/13/19 16:00 78 09/13/19 12:00 47 09/13/19 12:00 97.2 59 17 117/80 (92) 97 59 09/13/19 09:00 Room Air 09/13/19 08:00 97.3 60 15 123/70 (87) 97 59 09/13/19 08:00 47 09/13/19 04:00 96.9 56 18 145/67 (93) 97 56 09/13/19 04:00 64 09/13/19 00:00 67 09/13/19 00:00 96.7 50 18 119/62 (81) 96 56 09/12/19 21:00 Room Air Intake and Output 09/12/19 09/13/19 19:00 07:00 Intake Total 320 ml 120 ml Output Total 400 ml Balance -80 ml 120 ml Intake Oral 320 ml 120 ml Output Urine Total 400 ml # Voids 3 # Bowel Movements 1 Laboratory Tests 09/13/19 06:08: White Blood Count 3.8L, Red Blood Count 4.34L, Hemoglobin 11.6L, Hematocrit 33.0L, Mean Corpuscular Volume 76L, Mean Corpuscular Hemoglobin 26.6L, Mean Corpuscular Hemoglobin Concent 35.1, Red Cell Distribution Width 14.6, Platelet Count 282, Mean Platelet Volume 6.4L, Neutrophils (%) (Auto) 66.6, Lymphocytes ( %) (Auto) 18.7L, Monocytes (%) (Auto) 9.3, Eosinophils (%) (Auto) 3.9H, Basophils (%) (Auto) 1.6, Sodium Level 143, Potassium Level 4.1, Chloride Level 108H, Carbon Dioxide Level 28, Anion Gap 7, Blood Urea Nitrogen 11, Creatinine 0.9, Estimat Glomerular Filtration Rate > 60, Glucose Level 71L, Uric Acid 3.5, Calcium Level 8.8, Phosphorus Level 3.1, Magnesium Level 1.6L, Total Bilirubin 0.2, Aspartate Amino Transf (AST/SGOT) 36, Alanine Aminotransferase (ALT/SGPT) 38, Alkaline Phosphatase 85, Total Protein 5.9L, Albumin 2.5L, Globulin 3.4, Albumin/Globulin Ratio 0.7L Height (Feet): 5 Height (Inches): 9.00 Weight (Pounds): 100 Respiratory/Chest: lungs clear Abdomen: soft Xenia Sheets MD Sep 13, 2019 20:38
--- NOTE | 2019-09-13 21:55 | NUR ---
Discharge: Patient is being discharged from medical care. Awake, alert and oriented x1. After care instructions given. Patient's family verbalized understanding of After care instructions; at this time patient does not request medications. Patient's brother signed patient consent in the medical record for patient destination upon discharge. All medical devices such as IV and ID band were removed. Patient escorted out with wheelchair with all personal belongings with family.
--- NOTE | 2019-09-14 15:17 | NUR ---
*-* INSURANCE *-* ALL CLINICALS AND REVIEWS HAVE BEEN FAXED TO: MARY RANGEL:ROBBY P: [phone] [place] [phone] REF# [id number]
--- NOTE | 2019-09-15 15:10 | NUR ---
*-* INSURANCE *-* NO DISCHARGE SUMMARY IN THE SYSTEM UNABLE TO FAX
--- NOTE | 2019-09-18 14:38 | Discharge Summary ---
Discharge Summary Discharge Summary _ DATE OF ADMISSION: 09/10/2019 DATE OF DISCHARGE: 09/13/2019 DISCHARGED BY: Dr. Sheets REASON FOR ADMISSION: 59 years old male with history of developmental delay , who lives at home, presented with seizure episode , witnessed by the family member. It was unclear if patient had a seizure disorder in the past. Per description , patient had a tonic clonic movement, lasted few minutes without any known aggravating factors. Upon presentation patient denied any chest pain or shortness of breath. No nausea or vomiting. No abdominal pain. No headache. Vital signs were stable. Laboratory work-up revealed no leukocytosis , mild anemia with hemoglobin 11.6 ,hematocrit 34.5 , platelet count 306. Sodium 129. Chloride 94. Stable other electrolytes. Glucose 63. Troponin negative. Albumin 2.8. TSH elevated 7.632. Urine toxicology screen was negative. Serum Tylenol and alcohol were negative. CT of the head revealed no acute intracranial pathology. Patient started on lactated Ringer solution , received dextrose and admitted to telemetry floor for further management. CONSULTANTS: paving stone installer Dr. Fall neurologist Dr. Tavera cattle and wheat farmer Dr. Baird compressed air pile driver operator Dr. King revenue manager/oncologist Dr. Lee [facility] COURSE: Patient admitted to telemetry floor. Venous duplex bilateral lower extremity revealed no evidence of acute DVT . Echocardiogram demonstrated preserved ejection fraction 55 to 60% with no evidence of left ventricular hypertrophy. No evidence of wall motion abnormality. Right ventricular systolic pressure of 15. On telemetry patient demonstrated sinus bradycardia, no evidence of high degree block. Patient was not on any SNYDER and VN blockers. Heart rate stabilized. EEG done on 09/11 and was normal in awake and drowsy state. Per neurologist, patient seizure was related to hypoglycemia and hyponatremia versus possible seizure due to intracranial pathology. However the former was more likely due to the fact that the CT of the brain and EEG were both normal. Seizure precaution maintained. Keppra continued. No evidence of seizure activity while in the hospital. Keppra was discontinued as the seizure was most probably a symptomatic seizure due to hypoglycemia and hyponatremia. No further neurological interventions were recommended at this time. Hyponatremia work-up was done by compressed air pile driver operator. 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 Fluid restriction was implemented. Magnesium was replaced. Upon discharge sodium up to normal ,143. Hemoglobin A1c 5.6 , no diabetes. Blood sugar stabilized Blood culture were negative. Urine culture revealed mixed urogenital contaminants. No evidence of infection. TSH was elevated, free T4 within normal limits -most likely due to sick euthyroid. No need to start levothyroxine. Repeat thyroid function test in 3 weeks. Cortisol level and ACTH are all within normal levels. Adrenal insufficiency was ruled out by Cortrosyn stimulation test. Leukopenia possibly was related to SIRS. Hepatitis panel was negative. HIV test was nonreactive. RPR was nonreactive. Ultrasound of the abdomen revealed no sonographic evidence for chronic liver disease. GI prophylaxis provided. Bowel regimen instituted. Supportive care provided. Patient clinically stabilized and was ready for discharge home. FINAL DIAGNOSES: Breakthrough seizure episode, most likely due to hypoglycemia and hyponatremia Epileptic seizure , generalized. Hyponatremia , possibly mild SIADH -resolved Hypoglycemia -resolved Bradycardia-resolved Developmental delay Leukopenia Elevated TSH, likely sick euthyroid Electrolyte imbalance DISCHARGE MEDICATIONS: See Medication Reconciliation list. DISCHARGE INSTRUCTIONS: Patient was discharged home I have been assigned to dictate discharge summary for this account. I was not involved in the patient's management. Belkis Barker NP Sep 18, 2019 14:38
--- NOTE | 2019-09-19 16:52 | NUR ---
*-* INSURANCE *-* DISCHARGE SUMMARY FAXED: MARY RANGEL:ROBBY P: [phone] [place] [phone] REF# [id number]
== END 2019-09-13 21:50 | disposition home or self-care (01) | DRG 101 ==
LOC: EDUNIT# 01:40 → EDBD 01:40 → EMR 03:00 → EDBEDREQ 05:54 → 2E 06:01
DX: G40.409 Other generalized epilepsy and epileptic syndromes, not intractable, without status epilepticus (principal); E87.1 Hypo-osmolality and hyponatremia; E16.2 Hypoglycemia, unspecified; F79 Unspecified intellectual disabilities; R47.1 Dysarthria and anarthria; R00.1 Bradycardia, unspecified; E03.9 Hypothyroidism, unspecified
CPT/HCPCS: 36415; 70450; 71045; 76700; 80053; 80156; 80164; 80184; 80299; 80307; 81001; 82024; 82533; 82607; 82728; 82746; 82962; 83036; 83540; 83550; 83605; 83735; 83880; 83930; 83935; 84100; 84300; 84439; 84443; 84484; 84550; 85007; 85025; 85651; 86140; 86592; 86703; 86705; 86709; 86803; 87040; 87086; 87340; 93005; 93306; 93970; 95819; 96361; 96374; 96375; 99285; G0480; J0834; J7030